=== PATIENT | male | born 1935 | race Caucasian/White ===

== ENCOUNTER → 2019-06-07 | Outpatient (CLI) | payer OTHER ==
--- NOTE | 2019-06-07 13:25 | US ---
EXAMINATION TYPE: US carotid duplex BILAT DATE OF EXAM: 06/07/2019 COMPARISON: NONE CLINICAL HISTORY: I65.23 Occlusion and stenosis of bilateral carotid. EXAM MEASUREMENTS: RIGHT: Peak Systolic Velocity (PSV) cm/sec ----- Right CCA: 65.1 ----- Right ICA: no flow ----- Right ECA: 110.8 ICA/CCA ratio: --- RIGHT: End Diastole cm/sec ----- Right CCA: 12.7 ----- Right ICA: no flow ----- Right ECA: 24.1 LEFT: Peak Systolic Velocity (PSV) cm/sec ----- Left CCA: 93.0 ----- Left ICA: 90.9 ----- Left ECA: 95.4 ICA/CCA ratio: 1.0 LEFT: End Diastole cm/sec ----- Left CCA: 27.0 ----- Left ICA: 35.9 ----- Left ECA: 15.4 VERTEBRALS (direction of flow): Right Vertebral: Antegrade Left Vertebral: Antegrade Rhythm: Normal Right ICA appears occluded with blunted waveform in bulb and no flow in ICA with color or pulsed wave doppler. Left side shows mild plaque with no increases in velocity seen. IMPRESSION: 1. Complete occlusion of the right internal carotid artery. 2. Mild grayscale plaquing of the left carotid arterial system without hemodynamically significant st enosis. Criteria for Assigning % of Stenosis / Diameter reduction (Estimation based on the indirect measurements of the internal carotid artery velocities (ICA PSV). 1. Normal (no stenosis)=ICA PSV < 125 cm/s: ratio < 2.0: ICA EDV<40 cm/s. 2. Less than 50% stenosis=ICA PSV < 125 cm/s: ratio < 2.0: ICA EDV<40 cm/s. 3. 50 to 69% stenosis=ICA PSV of 125 to 230 cm/s: ration 2.0 ? 4.0: ICA EDV 40-100 cm/s. 4. Greater than 70% stenosis to near occlusion= ICA PSV > 230 cm/s: ratio > 4.0: ICA EDV > 100 cm/s. 5. Near occlusion= ICA PSV velocities may be low or undetectable: variable ratio and ICA EDV. 6. Total occlusion=unable to detect flow.
== END | disposition home or self-care (01) ==
LOC: RADUSWWP 12:40
DX: I65.23 Occlusion and stenosis of bilateral carotid arteries (principal); Z88.8 Allergy status to other drugs, medicaments and biological substances
CPT/HCPCS: 93880

== ENCOUNTER → 2020-12-15 | Outpatient (CLI) | payer OTHER ==
--- NOTE | 2020-12-15 19:37 | CT ---
EXAMINATION TYPE: CT chest wo con DATE OF EXAM: 12/15/2020 COMPARISON: None HISTORY: Cough with phlegm CT DLP: 418.3 mGycm. Automated Exposure Control for Dose Reduction was Utilized. TECHNIQUE: CT scan of the thorax is performed without IV contrast. FINDINGS: LUNGS: There is extensive pleural-based thickening and calcification. Correlate for is best is relate d disease. No pleural effusion or pneumothorax. Interlobular septal thickening suggest chronic inters titial pulmonary fibrosis. Groundglass changes in the left upper lobe most likely the basis of atelec tasis correlate clinically to exclude a pneumonitis. MEDIASTINUM: Lack of IV contrast is noted to limit evaluation for mediastinal and especially hilar ad enopathy. There are no definitive greater than 1 cm hilar or mediastinal lymph nodes. Pericardial amelia cification noted. Coronary artery calcification seen. OTHER: There is vague increased attenuation involving the paraspinal region on the right which could represent developing mass or adenopathy. It is somewhat poorly defined of maximal width 1.6 cm. Simil ar finding is noted on the left to a lesser extent. Hypertrophic and degenerative changes of the spin e are noted. Chronic rib deformity seen. Left-sided renal lesions measure a maximal Hounsfield unit o f 12 suggestive of simple cyst. Right renal lesion measures approximately 4.6 Hounsfield units compat ible with simple cyst. Trace gynecomastia noted.. Metallic density noted within the left anterior sof t tissues of the chest. Correlate for foreign body. IMPRESSION: 1. Correlate for chronic interstitial lung disease and asbestos related disease. 2. There is vague increased attenuation in the paraspinal line greater on the right within the rail switch operator ior mediastinum. Suspicion for poorly defined adenopathy or mass. Recommend follow-up PET scan 3. Coronary artery calcification. 4. Renal simple cysts. 5. Groundglass changes left upper lobe. Atelectasis favored over pneumonitis.
== END | disposition home or self-care (01) ==
LOC: RADCTMAIN 13:33
PROVIDERS: ATTEND Physician Assistant
DX: J18.9 Pneumonia, unspecified organism (principal); J84.9 Interstitial pulmonary disease, unspecified; I25.10 Atherosclerotic heart disease of native coronary artery without angina pectoris
CPT/HCPCS: 71250

== ENCOUNTER → 2021-02-02 | Outpatient (CLI) | payer OTHER ==
--- NOTE | 2021-02-06 16:53 | PE ---
Nuclear medicine PET/CT HISTORY: Mediastinal mass, R 91.8, solitary pulmonary nodule initial Patient received 10.3 mCi F-18 FDG intravenously and delayed scanning was performed from the mid thig hs through the skull base. Correlation to chest CT 12/15/2020 Chest and neck: There is no cervical or supraclavicular adenopathy. No mediastinal, axillary, or litzy r adenopathy. Coronary artery calcifications are present. There are calcified pleural plaques present . The paraspinal soft tissue density with mixed fat attenuation is again noted, there is no associate d hypermetabolic uptake. There is no evident lung mass. Calcified lung nodules are present along the left heart border. There is no pleural or pericardial effusion. Coronary artery calcifications are pr esent. There are changes of gynecomastia. ABDOMEN: No suspicious uptake. No evident adrenal mass or liver mass. There is no ascites. Diverticul ar changes extensive in the sigmoid colon. No pelvic adenopathy or free fluid. Osseous structures show no suspicious uptake. Degenerative disc changes and facet arthropathy noted e specially in the lower lumbar spine. IMPRESSION: No suspicious uptake. Consider follow-up CT to assess for stability.
== END | disposition home or self-care (01) ==
LOC: RADPETMAIN 11:39
PROVIDERS: ATTEND Internal Medicine
DX: R91.8 Other nonspecific abnormal finding of lung field (principal); J92.9 Pleural plaque without asbestos
CPT/HCPCS: 78815; A9552

== ENCOUNTER 2021-12-07 11:37 | Observation (INO) | payer OTHER, MEDICARE, BC ==
[2021-12-07] MEDS ORDERED: ORPHENADRINE 30 MG/ML 2 ML VIAL IM STA (11:56)
--- NOTE | 2021-12-07 12:02 | ED ---
General Adult HPI - General Chief complaint: Extremity Problem,Nontraumatic Stated complaint: Leg Pain Time Seen by Provider: 12/07/21 11:48 Source: patient, EMS, RN notes reviewed, old records reviewed Mode of arrival: EMS Limitations: no limitations - History of Present Illness Initial comments: Patient states he has right hip and thigh pain for one week. He was seen at the [facility] and was told to have an ultrasound to rule out DVT. He did come to the emergency room and had an ultrasound on December 04 with no DVT noted. He continues to have right thigh pain that comes down across the top of his right thigh. He denies any injury. Patient states that last week he was walking while turkey hunting but did not walk far and did not have an injury. He states he has had back pain in the past but denies back pain, states pain starts in right hip. He denies any fevers, no nausea vomiting or diarrhea. One cigar a day smoker. Takes blood pressure and cholesterol meds, denies any other medical history. -: week(s) (1) Location: right, lower extremity (hip and thigh) Radiation: distal Severity scale (1-10): 8 Quality: sharp Associated Symptoms: denies other symptoms Treatments Prior to Arrival: NSAID, other (u/s) - Related Data Allergies Allergy/AdvReac Type Severity Reaction Status Date / Time No Known Allergies Allergy Verified 12/07/21 11:44 Review of Systems ROS Statement: Those systems with pertinent positive or pertinent negative responses have been documented in the HPI. ROS Other: All systems not noted in ROS Statement are negative. Past Medical History Past Medical History: Hyperlipidemia History of Any Multi-Drug Resistant Organisms: None Reported Past Surgical History: No Surgical Hx Reported Past Psychological History: No Psychological Hx Reported Smoking Status: Light tobacco smoker Past Alcohol Use History: Daily Past Drug Use History: None Reported General Exam Limitations: no limitations General appearance: alert, in no apparent distress Head exam: Present: atraumatic Neck exam: Present: normal inspection, full ROM. Absent: tenderness, meningismus Respiratory exam: Present: normal lung sounds bilaterally. Absent: respiratory distress, accessory muscle use Cardiovascular Exam: Present: regular rate GI/Abdominal exam: Present: soft. Absent: tenderness Extremities exam: Present: tenderness (Right hip pain), normal capillary refill. Absent: pedal edema, joint swelling, calf tenderness Right Hip exam: Present: tenderness, pelvic stability. Absent: swelling, laceration, ecchymosis, deformity, crepitus, dislocation, erythema, shortening Upper Leg exam: Present: tenderness (Anterior thigh along rectus femoris muscle). Absent: swelling, abrasion, ecchymosis, deformity, erythema Knee exam: Present: full knee extension. Absent: tenderness, swelling, ecchymosis, pain/laxity with valgus, pain/laxity with varus Lower Leg exam: Absent: tenderness, swelling Ankle exam: Absent: tenderness, swelling Foot/Toe exam: Absent: tenderness, swelling Neurovascular tendon exam: Present: no vascular compromise. Absent: abnormal cap refill, extremity cold to touch, foot drop Back exam: Present: full ROM. Absent: tenderness, CVA tenderness (R), CVA tenderness (L), muscle spasm, paraspinal tenderness, vertebral tenderness, rash noted Neurological exam: Present: alert, oriented X3 Psychiatric exam: Present: normal affect, normal mood Skin exam: Present: warm, dry, normal color. Absent: cyanosis, diaphoretic, petechiae, pallor Course Vital Signs 12/07/21 12/07/21 11:39 14:29 Temperature 97.8 F Pulse Rate 69 60 Respiratory 14 18 Rate Blood Pressure 174/83 145/80 O2 Sat by Pulse 96 95 Oximetry - Reevaluation(s) Reevaluation #1: 12/07/21 13:13 Patient states that he has no pain relief with the Norflex. Patient states now that the pain goes down to his ankle from his right hip but denies any low back pain. Time: 13:13 Reevaluation #2: 12/07/21 14:02 Patient was given Toradol and Dilaudid states 0 pain relief. Still unable to move leg without severe pain. Time: 14:02 Medical Decision Making - Medical Decision Making Patient presents with 1 week of right upper leg pain. States he is unable to ambulate due to pain. Came to the hospital via EMS. Patient states he lives alone and is unable to go home with the amount of pain he is in and unable to ambulate. Ultrasound was done 2 days ago and negative for DVT. Leg is pink warm and dry, there is no evidence of edema. I did perform an x-ray to rule out occult fracture, there is no evidence of fracture. Patient denies any pelvic pain, there is no pelvic instability. Patient was given multiple doses of pain medication with no relief. Case discussed with Dr. Hinds, He will be placed in observation for evaluation by Ortho. Disposition Clinical Impression: Intractable neuropathic pain of right lower extremity Disposition: ADMITTED IP TO THIS HOSP Referrals: [facility],Clinic [Primary Care Provider] - 1-2 days Decision Date: 12/07/21 Decision Time: 14:03
--- NOTE | 2021-12-07 12:59 | XR ---
EXAMINATION TYPE: XR Hip RT and AP Pelvis DATE OF EXAM: 12/07/2021 CLINICAL HISTORY: Pelvic and right hip pain. TECHNIQUE: A single AP view of the pelvis is obtained. Two views of the right hip are obtained. COMPARISON: None. FINDINGS: There is no acute fracture/dislocation evident in the pelvis. The hip and sacroiliac joints appear s ymmetric and unremarkable. The overlying soft tissue appears unremarkable.Two views of right hip guerrero w no acute fracture or dislocation. No focal lytic or sclerotic lesion seen in the proximal right fe mur. The overlying soft tissue is unremarkable. IMPRESSION: There is no acute fracture or dislocation in the pelvis or right hip.
[2021-12-07] MEDS ORDERED: KETOROLAC 15 MG/ML 1 ML VIAL IM STA (13:13)
[2021-12-07] MEDS ORDERED: HYDROmorphone 0.5 MG/0.5 ML SYRINGE IM STA (13:13)
[2021-12-07] MEDS ORDERED: HYDROmorphone 1 MG/ML 1 ML SYRINGE IM STA (14:11)
[2021-12-07] MEDS ORDERED: NALOXONE 0.4 MG/ML 1 ML VIAL IV PRN (14:17)
[2021-12-07] MEDS ORDERED: ACETAMINOPHEN TAB 325 MG TAB PO PRN (14:17)
[2021-12-07] MEDS ORDERED: IBUPROFEN 400 MG TAB PO PRN (14:17)
[2021-12-07] MEDS ORDERED: HYDROcodone/APAP 5-325MG 1 EACH TAB PO PRN (16:24)
[2021-12-07] MEDS ORDERED: traZODone HCL 50 MG TAB PO PRN (16:25)
[2021-12-07] MEDS ORDERED: CYCLOBENZAPRINE 5 MG TAB PO PRN (16:50)
--- NOTE | 2021-12-07 16:56 | P.HPIM ---
History of Present Illness H&P Date: 12/07/21 Chief Complaint: RLE pain Patient is an 86-year-old male with PMH of hypertension, dyslipidemia who presents the ED for right lower amber pain. Patient reports right hip pain that started 8 days ago. There is no precipitating event prior to his pain. Pain starts at the lateral hip, sharp and stabbing in nature radiating down the right lower extremity. Pain is 8 out of 10 in severity. Patient reports difficulty walking because of this pain. Pain is progressively been getting worse to the point he came to the ED today. He denies any headache, lower showing edema, nausea or vomiting, fever or chills, cough, chest pain, shortness of breath, palpitations, changes in urination or bowel habits. No changes in appetite or weight. Denies any dizziness. In the ED, vital signs are stable. No lab work was performed. X-ray of the hip was negative. Patient is admitted under observation status for intractable pain, unsafe discharge home, orthopedic consultation. Review of system was performed and is negative except for above. General: [non toxic], [no distress], [appears at stated age] Derm: [warm], [dry] Head: [atraumatic], [normocephalic], [symmetric] Eyes: [EOMI], [no lid lag], [anicteric sclera] Mouth: [no lip lesion], [mucus membranes moist] Cardiovascular: [S1S2 reg], [no murmur] Lungs: [CTA bilateral], [no rhonchi, no rales] , [no accessory muscle use] Abdominal: [soft], [ nontender to palpation], [no guarding], [no appreciable organomegaly] Ext: [no gross muscle atrophy], [no edema], [no contractures], [SLR positive right lower extremity, restricted ROM of the R hip due to pain] Neuro: [ CN II-XI grossly intact], [no focal neuro deficits] Psych: [Alert], [oriented], [appropriate affect] #Right hip pain #Hypertension #Dyslipidemia #Morbid obesity Patient presents with right hip pain and reduced mobility due to pain. Reports pain starting at the lateral hip and radiating down his right lower extremity. Pain appears neuropathic in nature. He'll be started on Tylenol, [place], ibuprofen or Dilaudid as needed for pain. Flexeril as needed for muscle spasm. He will be placed on fall precautions. PT and OT will be consulted to work with this patient. Orthopedic surgery has been consulted for further management of this patient. He'll be restarted on losartan. Vital signs of a moderate medication adjusted if necessary. Restart simvastatin for history dyslipidemia. Patient will benefit from a structured weight loss program. DVT prophylaxis: [SCD] Discussed with: [Patient] Anticipated discharge: [1-2 days] Anticipated discharge place: [Home] A total of [45] minutes was spent on the care of this complex patient more than 50% of the time was spent in counseling and care coordination. Patient names his daughter decision maker if he can make decisions for himself. Patient would like to be full code. Past Medical History Past Medical History: Hyperlipidemia History of Any Multi-Drug Resistant Organisms: None Reported Past Surgical History: No Surgical Hx Reported Past Psychological History: No Psychological Hx Reported Smoking Status: Light tobacco smoker Past Alcohol Use History: Daily Past Drug Use History: None Reported Medications and Allergies Home Medications Medication Instructions Recorded Confirmed Type Aspirin EC [Ecotrin Low Dose] 81 mg PO DAILY 12/07/21 12/07/21 History Losartan [Cozaar] 12.5 mg PO DAILY 12/07/21 12/07/21 History Melatonin 5 - 10 mg PO HS PRN 12/07/21 12/07/21 History Multivitamins, Thera [Multivitamin 1 tab PO DAILY 12/07/21 12/07/21 History (formulary)] Simvastatin 40 mg PO DAILY 12/07/21 12/07/21 History traZODone HCL [Desyrel] 25 mg PO HS PRN 12/07/21 12/07/21 History Allergies Allergy/AdvReac Type Severity Reaction Status Date / Time No Known Allergies Allergy Verified 12/07/21 14:40 Physical Exam Vitals: Vital Signs Temp Pulse Resp BP Pulse Ox 12/07/21 14:29 60 18 145/80 95 12/07/21 11:39 97.8 F 69 14 174/83 96 Intake and Output 12/07/21 12/07/21 12/07/21 06:59 14:59 22:59 Other: Weight 86.183 kg
[2021-12-07] MEDS: HYDROmorphone 1 MG/ML 1 ML SYRINGE IVP PRN ×2 (19:54→23:06)
[2021-12-08] MEDS: HYDROmorphone 1 MG/ML 1 ML SYRINGE IVP PRN ×3 (02:00→15:12)
--- NOTE | 2021-12-08 08:52 | P.DS ---
Providers Date of admission: 12/07/21 14:21 Expected date of discharge: 12/08/21 Attending physician: Demar Nicole MD Consults: 12/07/21 14:18 Consult Physician Routine Consulting Provider: Maximo Negrete Consult Reason/Comments: Intractable right leg pain Do you want consulting provider notified?: Yes Primary care physician: [facility] Course: Patient is an 86-year-old male with PMH of hypertension, dyslipidemia who presents the ED for right lower amber pain. Patient reports right hip pain that started 8 days ago. There is no precipitating event prior to his pain. Pain starts at the lateral hip, sharp and stabbing in nature radiating down the right lower extremity. Pain is 8 out of 10 in severity. Patient reports difficulty walking because of this pain. Pain is progressively been getting worse to the point he came to the ED today. He denies any headache, lower showing edema, nausea or vomiting, fever or chills, cough, chest pain, shortness of breath, palpitations, changes in urination or bowel habits. No changes in appetite or weight. Denies any dizziness. In the ED, vital signs are stable. No lab work was performed. X-ray of the hip was negative. Patient is admitted under observation status for intractable pain, unsafe discharge home, orthopedic consultation. His pain was controlled with [place], and Dilaudid as needed. Flexeril was added for muscle spasms. PT and OT was consulted to work with this patient. Orthopedic surgery was consulted and was pending at the time of this note. Patient was seen and examined on 12/08/2021. He reported considerable improvement in his right lower extremity pain. He was comfortable with being discharged home on oral pain medication to follow-up with orthopedic surgery within 1 week in the outpatient setting. Patient was advised follow-up with his PCP within 1-2 days of discharge. He was sent home with a 3 day prescription for Percocet and Flexeril as needed. This complex discharge took about 45 minutes to complete. General: [non toxic], [no distress], [appears at stated age] Derm: [warm], [dry] Head: [atraumatic], [normocephalic], [symmetric] Eyes: [EOMI], [no lid lag], [anicteric sclera] Mouth: [no lip lesion], [mucus membranes moist] Cardiovascular: [S1S2 reg], [no murmur] Lungs: [CTA bilateral], [no rhonchi, no rales] , [no accessory muscle use] Ext: [no gross muscle atrophy], [no edema], [no contractures], [SLR positive right lower extremity, restricted ROM of the R hip due to pain] Neuro: [no focal neuro deficits] Psych: [Alert], [oriented], [appropriate affect] Discharge Diagnosis: #Right hip pain #Hypertension #Dyslipidemia #Morbid obesity Pertinent Studies: Hip/Pelvis XRay Patient Condition at Discharge: Stable Plan - Discharge Summary Discharge Rx Participant: No New Discharge Prescriptions: New oxyCODONE HCL/ACETAMINOPHEN [Percocet 7.5-325 mg] 1 tab PO Q6HR PRN 3 Days #12 tab PRN Reason: Severe Pain Cyclobenzaprine [Flexeril] 5 mg PO TID PRN #30 tab PRN Reason: Muscle Spasm Continue Multivitamins, Thera [Multivitamin (formulary)] 1 tab PO DAILY traZODone HCL [Desyrel] 25 mg PO HS PRN PRN Reason: Insomnia Melatonin 5 - 10 mg PO HS PRN PRN Reason: Insomnia Simvastatin 40 mg PO DAILY Aspirin EC [Ecotrin Low Dose] 81 mg PO DAILY Losartan [Cozaar] 12.5 mg PO DAILY Discharge Medication List Aspirin EC [Ecotrin Low Dose] 81 mg PO DAILY 12/07/21 [History] Losartan [Cozaar] 12.5 mg PO DAILY 12/07/21 [History] Melatonin 5 - 10 mg PO HS PRN 12/07/21 [History] Multivitamins, Thera [Multivitamin (formulary)] 1 tab PO DAILY 12/07/21 [History] Simvastatin 40 mg PO DAILY 12/07/21 [History] traZODone HCL [Desyrel] 25 mg PO HS PRN 12/07/21 [History] Cyclobenzaprine [Flexeril] 5 mg PO TID PRN #30 tab 12/08/21 [Rx] oxyCODONE HCL/ACETAMINOPHEN [Percocet 7.5-325 mg] 1 tab PO Q6HR PRN 3 Days #12 tab 12/08/21 [Rx] Follow up Appointment(s)/Referral(s): Kirk Dove DO [Doctor of Osteopathic Medicine] - 1 Week [facility],Clinic [Primary Care Provider] - 1-2 days Activity/Diet/Wound Care/Special Instructions: Diet: Cardiac FU with PCP within 1-2 days of discharge. FU with Orthopedic surgery Dr. Dove within 1 week of discharge. Take all medications as advised. Come back to the ED or call 911 for worsening hip pain, chest pain, shortness of breath, palpitations, dizziness/lightheadedness. Discharge Disposition: HOME SELF-CARE
[2021-12-08] MEDS ORDERED: LOSARTAN 25 MG TAB PO SCH (09:00)
[2021-12-08] MEDS ORDERED: ATORVASTATIN 20 MG TAB PO SCH (09:00)
[2021-12-08] MEDS ORDERED: ASPIRIN 81 MG PO SCH (09:00)
--- NOTE | 2021-12-08 09:36 | P.CNOR ---
History of Present Illness - HPI Consult date: 12/08/21 History of present illness: This is an 86-year-old male who is admitted for evaluation of right thigh pain. Patient's past medical history is significant for hyperlipidemia and hypertension. Patient is seen and evaluated at bedside today. Patient states that about 8 or 9 days ago he developed a significant pain in the side and back of the right hip that radiates to the front of the thigh. Patient denies any injury, history of back problems or any past spine surgery. Patient states that when the pain was at its worst he was unable to bear weight on the right lower extremity. Patient states that he does live alone and has been using a cane because of the pain. Patient states that he has noticed improvement in his pain since being admitted to the hospital and has been able to bear weight on the right lower extremity using a walker. Patient denies any fever/chills, numbness or tingling. Review of Systems See HPI. Past Medical History Past Medical History: Hyperlipidemia, Hypertension History of Any Multi-Drug Resistant Organisms: None Reported Past Surgical History: No Surgical Hx Reported Past Anesthesia/Blood Transfusion Reactions: No Reported Reaction Past Psychological History: No Psychological Hx Reported Smoking Status: Light tobacco smoker Past Alcohol Use History: Daily Additional Past Alcohol Use History / Comment(s): 1 cigar Past Drug Use History: None Reported - Past Family History Mother Family Medical History: No Reported History Medications and Allergies Home Medications Medication Instructions Recorded Confirmed Type Aspirin EC [Ecotrin Low Dose] 81 mg PO DAILY 12/07/21 12/07/21 History Losartan [Cozaar] 12.5 mg PO DAILY 12/07/21 12/07/21 History Melatonin 5 - 10 mg PO HS PRN 12/07/21 12/07/21 History Multivitamins, Thera [Multivitamin 1 tab PO DAILY 12/07/21 12/07/21 History (formulary)] Simvastatin 40 mg PO DAILY 12/07/21 12/07/21 History traZODone HCL [Desyrel] 25 mg PO HS PRN 12/07/21 12/07/21 History Cyclobenzaprine [Flexeril] 5 mg PO TID PRN #30 tab 12/08/21 Rx oxyCODONE HCL/ACETAMINOPHEN 1 tab PO Q6HR PRN 3 Days #12 tab 12/08/21 Rx [Percocet 7.5-325 mg] Allergies Allergy/AdvReac Type Severity Reaction Status Date / Time No Known Allergies Allergy Verified 12/07/21 14:40 Physical Examination On exam patient is resting comfortably in bed in no acute distress. Patient has full active range of motion of bilateral lower extremities without pain or difficulty. Patient has full passive range of motion of the right hip without any pain or difficulty. Negative straight leg raise bilaterally. There is no tenderness to palpation, swelling, erythema, step-off or deformities noted over the spine. There is no tenderness to palpation over the right hip. Sensation intact bilaterally. Neurovascular status and circulatory status are intact. Results X-rays of the right hip and pelvis are negative. X-rays of the lumbar spine are pending. Assessment and Plan (1) Radicular pain of right lower extremity Current Visit: Yes Status: Acute Code(s): M54.10 - RADICULOPATHY, SITE UNSPECIFIED SNOMED Code(s): 79411583 Plan: 1. X-rays of the right hip and pelvis are reviewed and are negative. X-rays of the lumbar spine are pending. 2. It is discussed with the patient that his pain is likely coming from his back. Patient's pain has improved since being admitted and he has been independently mobile in his room. If x-rays of the lumbar spine are negative patient may be discharged home with outpatient follow-up for further evaluation of the spine.
--- NOTE | 2021-12-08 14:01 | XR ---
Lumbar spine. HISTORY: Back pain and radiculopathy. COMPARISON: None. TECHNIQUE: 3 views lumbar spine were obtained. FINDINGS: The lumbar vertebral segments are normal in height and alignment and there is no fracture or subluxat ion. The disc spaces are well-maintained but there is marked spondylosis indicating mild degenerative disc disease. There is moderate to marked facet arthropathy at the L4-5 and L5-S1 levels. The sacrum and SI joints appear normal. IMPRESSION: 1. No lumbar spine fracture or malalignment. 2. Mild degenerative disc disease throughout the lumbar region. 3. Advanced facet arthropathy at the L4-5 and L5-S1 level.
[2021-12-08 14:57] VITALS: BP 152/71; PULSE 80; RESP 18; TEMP 97.8
== END 2021-12-08 16:21 | disposition home or self-care (01) ==
LOC: EC 11:37 → 6NMEDSUR 14:21
PROVIDERS: ADMIT Family Medicine; ATTEND Family Medicine
DX: M25.551 Pain in right hip (principal); I10 Essential (primary) hypertension; E78.5 Hyperlipidemia, unspecified; E66.01 Morbid (severe) obesity due to excess calories; Z68.30 Body mass index [BMI] 30.0-30.9, adult; M62.838 Other muscle spasm; F17.290 Nicotine dependence, other tobacco product, uncomplicated; M51.36 Other intervertebral disc degeneration, lumbar region; Z71.9 Counseling, unspecified; Z79.82 Long term (current) use of aspirin; Z79.899 Other long term (current) drug therapy
CPT/HCPCS: 96376; 96374; 96372; 99285; 72100; 73502; G0378 ×2; J2360; J1170 ×3; J1885

== ENCOUNTER 2024-08-26 05:16 | Inpatient (IN) | payer OTHER, MEDICARE ==
[2024-08-26 05:28] LABS: Glucose,Whole Blood 131 mg/dL (70-110)
[2024-08-26] MEDS: SODIUM CHLORIDE 0.9% 1,000 ML IV ONE (05:32)
[2024-08-26] MEDS: ONDANSETRON 4 MG/2 ML VIAL IVP STA (05:33)
[2024-08-26] MEDS: MORPHINE SULFATE 4 MG/ML SYRINGE IV STA (05:35)
[2024-08-26] MEDS: ACETAMINOPHEN IV (For NPO) 1,000 MG/100 ML VIAL IV ONE (05:37)
--- NOTE | 2024-08-26 05:39 | ED ---
General Adult HPI - General Chief complaint: Fall Stated complaint: Fall Time Seen by Provider: 08/26/24 05:19 Source: patient Mode of arrival: EMS - History of Present Illness Initial comments: Patient is a pleasant 89-year-old gentleman presenting today for mechanical trip and fall. Patient states that 8 PM last night he slipped getting out of the car and fell onto his left hip. He was unable to get up afterwards so his son carried into the house onto the couch. Patient attempted to get up off the couch early this morning for a glass of water and was unable to get up secondary to pain. Patient denies hitting his head, loss of consciousness or additional injuries. Takes baby aspirin but no other blood thinners. Has never had surgery in the past. Last meal was at 10 PM last night. Currently rates pain in his left hip as 4-5 out of 10. No pain medications prior to arrival. Patient denies numbess. Denies allergies. - Related Data Home Medications Medication Instructions Recorded Confirmed Aspirin EC [Ecotrin Low Dose] 81 mg PO DAILY 12/07/21 08/26/24 Losartan [Cozaar] 25 mg PO DAILY 12/07/21 08/26/24 Multivitamins, Thera [Multivitamin 1 tab PO DAILY 12/07/21 08/26/24 (formulary)] Cholecalciferol [Vitamin D3 (10 10 mcg PO DAILY 08/26/24 08/26/24 Mcg = 400 Iu)] Naproxen 500 mg PO BID PRN 08/26/24 08/26/24 Allergies Allergy/AdvReac Type Severity Reaction Status Date / Time No Known Allergies Allergy Verified 08/26/24 07:01 Review of Systems ROS Statement: Those systems with pertinent positive or pertinent negative responses have been documented in the HPI. ROS Other: All systems not noted in ROS Statement are negative. Past Medical History Past Medical History: Hyperlipidemia, Hypertension History of Any Multi-Drug Resistant Organisms: None Reported Past Surgical History: No Surgical Hx Reported Past Anesthesia/Blood Transfusion Reactions: No Reported Reaction Past Psychological History: No Psychological Hx Reported Smoking Status: Light tobacco smoker Past Alcohol Use History: Daily Past Drug Use History: None Reported - Past Family History Mother Family Medical History: No Reported History General Exam - General Exam Comments Initial Comments: PE: CONSTITUTIONAL: No apparent distress, well appearing SKIN: Warm, dry, no jaundice, hives or petechiae, small amount of bruising to medial left thigh EYES: Pupils are equally round, extraocular movements intact without nystagmus, clear conjunctiva, non-icteric sclera HENT: Normocephalic, atraumatic, moist mucus membranes, oropharynx clear without exudates NECK: , Full range of motion, normal appearance PULMONARY: Clear to auscultation without wheezes, rhonchi, or rales, normal excursion, no accessory muscle use and no stridor CARDIOVASCULAR: Regular rate, rhythm, normal S1 and S2. No appreciated murmurs, rubs or gallops. Strong radial and dorsalis pedis pulses bilaterally with intact distal perfusion. No lower extremity edema GASTROINTESTINAL: Soft, active bowel sounds throughout, non-tender, non- distended, no palpable masses, no rebound or guarding. No hepatosplenomegaly GENITOURINARY: MUSCULOSKELETAL: LLE is shortened and externall rotated, TTP left hip, unable to flex or extend left knee 2/2 pain in hip, able to dorsiand plantar flex at left ankle without difficulty, sensation intact throughout affected extremity, LLE is neurovascularly intact, other extremities have no gross deformity, no edema, redness, or swelling. NEUROLOGIC:_a/o x 3, GCS 15, normal mentation and speech. Moves all extremities x 4 without motor or sensory deficit PSYCHIATRIC:_normal mood and affect, thought process is clear and linear Course Vital Signs 08/26/24 08/26/24 05:17 06:27 Temperature 97.7 F Pulse Rate 75 74 Respiratory 24 20 Rate Blood Pressure 137/84 127/71 O2 Sat by Pulse 95 Oximetry EKG Findings - EKG Comments: EKG Findings:: Sinus rhythm with first-degree AV block, rate 77 bpm TN interval 237 ms QRS duration 134 ms QT/QTc 434/466 ms left axis deviation, left bundle branch block, no ST elevations or depressions, no STEMI, no prior for comparison Medical Decision Making - Medical Decision Making Was pt. sent in by a medical professional or institution (, PA, BUILD AND RELEASE MANAGER, urgent care, hospital, or retirement...) When possible be specific @ -No Did you speak to anyone other than the patient for history (EMS, parent, family, police, friend...)? What history was obtained from this source @ -No Did you review nursing and triage notes (agree or disagree)? Why? @ -I reviewed nursing and triage notes Were old charts reviewed (outside hosp., previous admission, EMS record, old EKG, old radiological studies, urgent care reports/EKG's, retirement records)? Report findings @ -Medical records reviewed patient was here for hip pain and December 2021, x-ray lumbar spine was done at that time without any fracture or malalignment with mild degenerative disc disease and advanced facet arthropathy at L4-L5 L5-S1 Differential Diagnosis (chest pain, altered mental status, abdominal pain women, abdominal pain men, vaginal bleeding, weakness, fever, dyspnea, syncope, headache, dizziness, GI bleed, back pain, seizure, CVA, palpatations, mental health, musculoskeletal)? Differential Musculoskeletal Muscular strain, contusion, ligament sprain, fracture, arthritis, septic arthritis, bursitis, cellulitis, muscle spasm, nerve compression, DVT, arterial occlusion, herpes zoster, electrolyte abnormality, tumor.... This is not meant to be in all inclusive list EKG interpreted by me (3pts min.). @ -As above X-rays interpreted by me (1pt min.). Left impacted femoral neck fracture CT interpreted by me (1pt min.). @ -None done U/S interpreted by me (1pt. min.). @ -None done What testing was considered but not performed or refused? (CT, X-rays, U/S, labs)? Why? @ -None What meds were considered but not given or refused? Why? @ -None Did you discuss the management of the patient with other professionals (professionals i.e. , PA, BUILD AND RELEASE MANAGER, lab, RT, psych nurse, social media content manager, calender inspector, te acher, chief diversity officer, sample case porter)? Give summary @Case discussed with Dr. Glover, orthopedics, will see patient and likely OR this afternoon Was smoking cessation discussed for >3mins.? @ -No Was critical care preformed (if so, how long)? @ -No Were there social determinants of health that impacted care today? How? (Homelessness, low income, unemployed, alcoholism, drug addiction, transportat ion, low edu. Level, literacy, decrease access to med. care, residential, rehab)? @ -No Was there de-escalation of care discussed even if they declined (Discuss DNR or withdrawal of care, Hospice)? @ -No What co-morbidities impacted this encounter? (DM, HTN, Smoking, COPD, CAD, Cancer, CVA, ARF, Chemo, Hep., AIDS, mental health diagnosis, sleep apnea, morbid obesity)? @ -None Was patient admitted / discharged? Hospital course, mention meds given and route, prescriptions, significant lab abnormalities, going to OR and other pertinent info. @ -Admission- Patient is a pleasant 89-year-old gentleman without significant medical history presenting today for a mechanical trip and fall with resultant left hip injury. Patient seen and assessed on arrival, he is in no acute distress, resting comfortably. Left lower extremity shortened and externally rotated neurovascularly intact, tender to palpation at the left hip. No wounds noted. Plan for morphine, Ofirmev, IV fluids, basic pre op labs should pt have a hip fracture. EKG was obtained prior to my assessment. Reviewed XR's, patient appears to have a left impacted femoral neck fracture, pending radiologist read. Discussed case w/ Dr. Negrete, orthopedics, kindly agrees to admit to his service, plans to take patient to OR around 4:30 this afternoon, keep patient NPO, consult medicine for medical clearance. Update patient and family to f leena and plan. Pt's pain now 2/10, he politely declines further pain control. Patient admitted in stable condition. Undiagnosed new problem with uncertain prognosis? @ -No Drug Therapy requiring intensive monitoring for toxicity (Heparin, Nitro, Insulin, Cardizem)? @ -No Were any procedures done? @ -No Diagnosis/symptom? @left femoral neck fracture Acute, or Chronic, or Acute on Chronic? acute Uncomplicated (without systemic symptoms) or Complicated (systemic symptoms)? uncomplicated Side effects of treatment? @ -No Exacerbation, Progression, or Severe Exacerbation? @ -No Poses a threat to life or bodily function? How? (Chest pain, USA, HI, pneumonia, PE, COPD, DKA, ARF, appy, cholecystitis, CVA, Diverticulitis, Homicidal, Suicidal, threat to staff... and all critical care pts) Yes, if left untreated would lead to permanent disability. - Lab Data Result diagrams: 08/26/24 05:31 08/26/24 05:31 Lab Results 08/26/24 08/26/24 08/26/24 Range/Units 05:26 05:31 05:31 WBC 13.9 H (3.8-10.6) k/uL RBC 4.27 L (4.30-5.90) m/uL Hgb 13.9 (13.0-17.5) gm/dL Hct 41.5 (39.0-53.0) % MCV 97.2 (80.0-100.0) fL MCH 32.5 (25.0-35.0) pg MCHC 33.4 (31.0-37.0) g/dL RDW 13.1 (11.5-15.5) % Plt Count 167 (150-450) k/uL MPV 7.0 Neutrophils % 91 % Lymphocytes % 4 % Monocytes % 4 % Eosinophils % 0 % Basophils % 0 % Neutrophils # 12.7 H (1.3-7.7) k/uL Lymphocytes # 0.6 L (1.0-4.8) k/uL Monocytes # 0.5 (0-1.0) k/uL Eosinophils # 0.0 (0-0.7) k/uL Basophils # 0.0 (0-0.2) k/uL PT 10.8 (10.0-12.5) sec INR 1.0 (<1.2) APTT 23.7 (22.0-30.0) sec Sodium (137-145) mmol/L Potassium (3.5-5.1) mmol/L Chloride (98-107) mmol/L Carbon Dioxide (22-30) mmol/L Anion Gap mmol/L BUN (9-20) mg/dL Creatinine (0.66-1.25) mg/dL Est GFR (CKD-EPI)AfAm (>60 ml/min/1.73 sqM) Est GFR (CKD-EPI)NonAf (>60 ml/min/1.73 sqM) Glucose (74-99) mg/dL POC Glucose (mg/dL) 131 H (70-110) mg/dL POC Glu Occup Ther ID Caya Shira Calcium (8.4-10.2) mg/dL Total Bilirubin (0.2-1.3) mg/dL AST (17-59) U/L ALT (4-49) U/L Alkaline Phosphatase (38-126) U/L Total Protein (6.3-8.2) g/dL Albumin (3.5-5.0) g/dL 08/26/24 Range/Units 05:31 WBC (3.8-10.6) k/uL RBC (4.30-5.90) m/uL Hgb (13.0-17.5) gm/dL Hct (39.0-53.0) % MCV (80.0-100.0) fL MCH (25.0-35.0) pg MCHC (31.0-37.0) g/dL RDW (11.5-15.5) % Plt Count (150-450) k/uL MPV Neutrophils % % Lymphocytes % % Monocytes % % Eosinophils % % Basophils % % Neutrophils # (1.3-7.7) k/uL Lymphocytes # (1.0-4.8) k/uL Monocytes # (0-1.0) k/uL Eosinophils # (0-0.7) k/uL Basophils # (0-0.2) k/uL PT (10.0-12.5) sec INR (<1.2) APTT (22.0-30.0) sec Sodium 132 L (137-145) mmol/L Potassium 3.9 (3.5-5.1) mmol/L Chloride 98 (98-107) mmol/L Carbon Dioxide 24 (22-30) mmol/L Anion Gap 10 mmol/L BUN 9 (9-20) mg/dL Creatinine 0.78 (0.66-1.25) mg/dL Est GFR (CKD-EPI)AfAm >90 (>60 ml/min/1.73 sqM) Est GFR (CKD-EPI)NonAf 81 (>60 ml/min/1.73 sqM) Glucose 141 H (74-99) mg/dL POC Glucose (mg/dL) (70-110) mg/dL POC Glu Occup Ther ID Calcium 8.7 (8.4-10.2) mg/dL Total Bilirubin 0.8 (0.2-1.3) mg/dL AST 22 (17-59) U/L ALT 13 (4-49) U/L Alkaline Phosphatase 66 (38-126) U/L Total Protein 6.5 (6.3-8.2) g/dL Albumin 3.8 (3.5-5.0) g/dL Disposition Clinical Impression: Fracture of femoral neck, left Disposition: ADMITTED IP TO THIS HOSP Condition: Stable
[2024-08-26 05:49] LABS: Basophils % (A) 0 %; Eosinophils % (A) 0 %; HCT 41.5 % (39.0-53.0); HGB 13.9 gm/dL (13.0-17.5); Lymphocytes # (A) 0.6 k/uL (1.0-4.8); Lymphocytes % (A) 4 %; MCH 32.5 pg (25.0-35.0); MCHC 33.4 g/dL (31.0-37.0); MCV 97.2 fL (80.0-100.0); Monocytes # (A) 0.5 k/uL (0-1.0); Monocytes % (A) 4 %; Neutrophils # (A) 12.7 k/uL (1.3-7.7); Neutrophils % (A) 91 %; Platelet Count 167 k/uL (150-450); RBC 4.27 m/uL (4.30-5.90); RDW 13.1 % (11.5-15.5); WBC 13.9 k/uL (3.8-10.6)
[2024-08-26 05:58] LABS: Partial Thromboplastin Time 23.7 sec (22.0-30.0); Prothrombin Time 10.8 sec (10.0-12.5)
[2024-08-26] MEDS: ACETAMINOPHEN IV (For NPO) 1,000 MG in EMPTY BAG 1 BAG IVPB STA (06:02)
[2024-08-26 06:08] LABS: ALT 13 U/L (4-49); AST 22 U/L (17-59); African American GFR (CKD) >90 (>60 ml/min/1.73 sqM); Albumin 3.8 g/dL (3.5-5.0); Alkaline Phosphatase 66 U/L (38-126); Anion Gap 10 mmol/L; Blood Urea Nitrogen 9 mg/dL (9-20); Calcium 8.7 mg/dL (8.4-10.2); Carbon Dioxide 24 mmol/L (22-30); Chloride 98 mmol/L (98-107); Glucose 141 mg/dL (74-99); Non-African American GFR(CKD) 81 (>60 ml/min/1.73 sqM); Potassium 3.9 mmol/L (3.5-5.1); Sodium 132 mmol/L (137-145); Total Bilirubin 0.8 mg/dL (0.2-1.3); Total Protein 6.5 g/dL (6.3-8.2)
[2024-08-26] MEDS ORDERED: bisacodyL 5 MG TABLET.DR PO PRN (06:13)
[2024-08-26] MEDS ORDERED: MAG HYDROX/AL HYDROX/SIMETH 30 ML CUP PO PRN (06:13)
[2024-08-26] MEDS ORDERED: NALOXONE 0.4 MG/ML 1 ML VIAL IV PRN ×2 (06:13→19:15)
[2024-08-26] MEDS ORDERED: MORPHINE SULFATE 4 MG/ML SYRINGE IV PRN (06:13)
[2024-08-26] MEDS ORDERED: DOCUSATE 100 MG CAP PO PRN (06:13)
[2024-08-26] MEDS ORDERED: CALCIUM CARBONATE 500 MG CHEWABLE PO PRN (06:13)
--- NOTE | 2024-08-26 06:29 | XR ---
EXAM: XR Chest, 1 View CLINICAL HISTORY: Pt presents to the ED with complaints of pain in his left hip 05/13, after a fall on ice at 1999 yesterday. Pt reports no LOC, no head trauma. Pt takes baby aspirin at home. TECHNIQUE: Frontal view of the chest. COMPARISON: CT chest from 12/15/20 FINDINGS: Lungs: Mild diffuse airspace opacities throughout both lungs. Pleural space: Unremarkable. Heart: Cardiomegaly. Bones/joints: No acute findings. IMPRESSION: Mild CHF
--- NOTE | 2024-08-26 06:30 | XR ---
EXAM: XR Left Femur, 2 Views CLINICAL HISTORY: ITS.REASON XR Reason: fall LL short. Externally rotated TECHNIQUE: Frontal and lateral views of the left femur. COMPARISON: No relevant prior studies available. FINDINGS: Bones/joints: Osteopenia. Suspect left femoral neck fracture with impaction. Osteopenia. Soft tissues: Unremarkable. IMPRESSION: Suspect left femoral neck fracture with impaction.
--- NOTE | 2024-08-26 06:31 | XR ---
EXAM: XR Pelvis, 1 View CLINICAL HISTORY: ITS.REASON XR Reason: fall LL short. Externally rotated TECHNIQUE: Frontal view of the pelvis. COMPARISON: No relevant prior studies available. FINDINGS: Bones/joints: Osteopenia. Suspect left femoral neck fracture with impaction. Osteopenia. Soft tissues: Unremarkable. IMPRESSION: Suspect left femoral neck fracture with impaction.
--- NOTE | 2024-08-26 07:18 | CT ---
EXAMINATION TYPE: CT hip LT wo con DATE OF EXAM: 08/26/2024 7:06 AM COMPARISON: . Extremity radiograph same day. CLINICAL INDICATION: Male, 89 years old with history of surgical planning; PHH, fx left hip TECHNIQUE: Axial images were obtained of the CT hip LT wo con, Additional coronal and sagittal reform atted images and soft tissue and bone window were obtained for review. 3-D reconstruction was created on a separate workstation. Contrast used: mL of , (None if empty) Oral contrast used: (None if empty) CT DLP: 571 mGycm, Automated exposure control for dose reduction was used. FINDINGS: Subcutaneous left femoral neck fracture with shortening and displacement. No additional fra ctures identified. There is associated soft tissue swelling. Atherosclerosis of the arterial vasculat ure. Scattered pelvic fluid was present. Biliary changes. The prostate is enlarged measuring up to 5. 0 cm. IMPRESSION: Left proximal femoral neck fracture with complete displacement. [facility], , 08/26/2024 7:16 AM
[2024-08-26] MEDS: DEXTROSE 5%-0.45% NACL 1,000 ML IV SCH (07:19)
[2024-08-26] MEDS: HYDROmorphone 0.5 MG/0.5 ML SYRINGE IVP PRN (07:50)
[2024-08-26] MEDS: PANTOPRAZOLE 40 MG/10 ML VIAL IV SCH (08:33)
--- NOTE | 2024-08-26 09:21 | P.HPOR ---
History of Present Illness H&P Date: 08/26/24 Chief Complaint: Left hip fracture The patient is a pleasant 89-year-old male with past medical history of hypertension, hyperlipidemia, who presented to the emergency department on 08/26/2024 for a mechanical trip and fall. Per chart review, the patient stated that 8 PM on 08/25/2024 he slipped getting out of a car and fell onto the ground and landed on his left hip. He was unable to get up afterwards so his son carried him into the house onto the couch. Patient attempted to get up off the couch early that morning for a glass of water and was unable to get up secondary to pain and was brought to the emergency department for evaluation. X-ray images of the pelvis and femur demonstrated a left transcervical femoral neck fracture. Orthopedics was consulted and Dr. Negrete ordered a hip CT scan. Hip CT obtained on 08/26/2024 demonstrated left proximal femoral neck fracture with complete displacement. Patient was examined and ER room #[address] Maximo Negrete. Patient denied hitting his head, loss of consciousness or any additional injuries. He stated he takes baby aspirin but no other blood thinners. He stated he has never had surgery in the past. He stated last meal was at 10 PM on 08/25/2024. He denies any other pain besides left hip pain. He states he lives alone in a home. He states he did not previously use a walker or cane. His daughters were at bedside at time of exam. Past Medical History Past Medical History: Hyperlipidemia, Hypertension History of Any Multi-Drug Resistant Organisms: None Reported Past Surgical History: No Surgical Hx Reported Past Anesthesia/Blood Transfusion Reactions: No Reported Reaction Past Psychological History: No Psychological Hx Reported Smoking Status: Light tobacco smoker Past Alcohol Use History: Daily Past Drug Use History: None Reported - Past Family History Mother Family Medical History: No Reported History Medications and Allergies Home Medications Medication Instructions Recorded Confirmed Type Aspirin EC [Ecotrin Low Dose] 81 mg PO DAILY 12/07/21 08/26/24 History Losartan [Cozaar] 25 mg PO DAILY 12/07/21 08/26/24 History Multivitamins, Thera [Multivitamin 1 tab PO DAILY 12/07/21 08/26/24 History (formulary)] Cholecalciferol [Vitamin D3 (10 10 mcg PO DAILY 08/26/24 08/26/24 History Mcg = 400 Iu)] Naproxen 500 mg PO BID PRN 08/26/24 08/26/24 History Allergies Allergy/AdvReac Type Severity Reaction Status Date / Time No Known Allergies Allergy Verified 08/26/24 07:01 Physical Examination Patient was examined at bedside in ER room #28 this morning. Patient head appears normocephalic and atraumatic. Patient has nonlabored breathing with equal chest expansion. Left lower extremity appears shortened and externally rotated. Patient denies pain to palpation to the cervical spine, clavicles, shoulders, humerus, elbows, forearms, wrist, or hand. Patient denies palpation to the right hip, femur, knee, ankle, or foot. No scars or active lesions over the anterior aspect of the left hip. The left thigh has generalized swelling. Patient reports tenderness to palpation over the left hip diffusely. Patient denies pain with palpation of the distal left femur, knee, ankle, foot. Patient's left dorsalis pedis and posterior tibialis pulses are intact and foot appears pink and well-perfused with capillary refill under 2 seconds. Results - Labs Labs: Abnormal Lab Results - Last 24 Hours (Table) 08/26/24 08/26/24 08/26/24 Range/Units 05:26 05:31 05:31 WBC 13.9 H (3.8-10.6) k/uL RBC 4.27 L (4.30-5.90) m/uL Neutrophils # 12.7 H (1.3-7.7) k/uL Lymphocytes # 0.6 L (1.0-4.8) k/uL Sodium 132 L (137-145) mmol/L Glucose 141 H (74-99) mg/dL POC Glucose (mg/dL) 131 H (70-110) mg/dL H & H 08/26/24 Range/Units 05:31 Hgb 13.9 (13.0-17.5) gm/dL Hct 41.5 (39.0-53.0) % Coagulation 08/26/24 Range/Units 05:31 INR 1.0 (<1.2) Result Diagrams: 08/26/24 05:31 08/26/24 05:31 Assessment and Plan Assessment: Left transcervical femoral neck fracture status post ground-level fall Left hip pain Plan: Remain NPO. Remain nonweightbearing. Dr. Maximo Negrete discussed with the patient and daughters at bedside this morning the operative treatment options and risks for a left transcervical femoral neck fracture of a left hip hemiarthroplasty so the patient can tentatively have early mobilization and resume weightbearing as tolerated with assistive device postop day #1. Discussed will have internal medicine evaluate the patient for preoperative medical clearance. Plan for surgery later this afternoon. Thank you for the consult. Dictation was produced using [employer] dictation software, please excuse any grammatical, word or spelling errors.
--- NOTE | 2024-08-26 11:01 | P.CONS ---
History of Present Illness - Reason for Consult Consult date: 08/26/24 Pre operative clearance - History of Present Illness Patient is a 89 year old male with a past medical history of hypertension who presented to the ED on 08/25 for left hip pain post fall. He states he was getting out of the car yesterday evening when he slipped on ice and fell on his left side. He denies hitting his head, or any loss of consciousness. He called his son who helped him into the house, but was unable to get up later in the evening to get a glass of water. Femur x-ray showed a suspected femoral neck fracture with impaction, which was confirmed on CT of the hip. He was admitted to the Orthopedic surgery service with plans for a left hip hemiarthroplasty on 08/26. Hospitalist team was consulted for preoperative medical clearance. In the ED, his BP was 127/71, pulse rate of 74, respiratory rate of 20 and currently saturating at 94% on 2L 02 by nasal cannula. WBC of 13.9 with a neutrophilic shift, sodium of 132, creatinine of 0.78, PT of 10.8, INR of 1.0. His EKG was independently reviewed, and shows sinus rhythm with 1st degree atrioventricular block, and a left bundle branch block. His chest xray was also reviewed independently, and shows mild cardiomegaly with mild bilateral opacities. He den ies any active chest pain, SOB, or palpitations. He has a history of smoking cigars in the remote past, and has one drink daily. He denies illicit drug use. He takes a baby aspirin daily. He has good functional status, and ambulates without the use of a cane/walker. He lives alone, but has a supportive family nearby. Pertinent positives and negatives as discussed in HPI, a complete review of sys tems was performed and all other systems are negative. Patient seen and examined at bedside. Vital signs reviewed General: nontoxic, no distress, appears at stated age. on 2L NC. Derm: warm, dry Head: atraumatic, normocephalic, symmetric Eyes: EOMI, no lid lag, anicteric sclera, pupils equal round reactive to light ENT: Nose and ears atraumatic Neck: No thyromegaly, supple Mouth: no lip lesion, mucus membranes moist Cardiovascular: S1S2 reg, no murmur, trace pedal edema bilaterally Lungs: Diminished breath sounds bilaterally, no rhonchi, no rales, no wheeze, no accessory muscle use Abdominal: soft, nontender to palpation, no guarding, no appreciable organomegaly Ext: no gross muscle atrophy, Left hip tender to palpation on the lateral and posterior aspect, no swelling, mild bruising of thigh on the medial aspect noted, no contractures Neuro: CN II-XII grossly intact Psych: Alert, oriented, appropriate affect Assessment/Plan: [Active:] Left femoral neck fracture with impaction -Managed by Orthopedic surgery, plan for left hip hemiarthroplasty later today -Acetominophen, Morphine, Dilaudid PRN for pain per Orthopedic surgery -PT/OT evaluation post surgery -Pre operative assessment: The patient's RCRI score is 0, with a 3.9% risk of major cardiac event. The patient is medically optimized, and he is at acceptable risk for the proposed procedure. Leukocytosis: -Continue to monitor, will recheck CBC tomorrow [Chronic:] Hypertension Thank you for the consult. Leah [facility] MD 08/26/2024 10:00 AM Past Medical History Past Medical History: Hyperlipidemia, Hypertension History of Any Multi-Drug Resistant Organisms: None Reported Past Surgical History: No Surgical Hx Reported Past Anesthesia/Blood Transfusion Reactions: No Reported Reaction Past Psychological History: No Psychological Hx Reported Smoking Status: Light tobacco smoker Past Alcohol Use History: Daily Past Drug Use History: None Reported - Past Family History Mother Family Medical History: No Reported History Medications and Allergies Home Medications Medication Instructions Recorded Confirmed Type Aspirin EC [Ecotrin Low Dose] 81 mg PO DAILY 12/07/21 08/26/24 History Losartan [Cozaar] 25 mg PO DAILY 12/07/21 08/26/24 History Multivitamins, Thera [Multivitamin 1 tab PO DAILY 12/07/21 08/26/24 History (formulary)] Cholecalciferol [Vitamin D3 (10 10 mcg PO DAILY 08/26/24 08/26/24 History Mcg = 400 Iu)] Naproxen 500 mg PO BID PRN 08/26/24 08/26/24 History Allergies Allergy/AdvReac Type Severity Reaction Status Date / Time No Known Allergies Allergy Verified 08/26/24 07:01 Physical Exam Vitals: Vital Signs Temp Pulse Resp BP Pulse Ox 08/26/24 08:32 87 18 127/70 94 L 08/26/24 07:48 89 18 132/80 88 L 08/26/24 06:27 74 20 127/71 08/26/24 05:17 97.7 F 75 24 137/84 95 Intake and Output 08/25/24 08/26/24 08/26/24 22:59 06:59 14:59 Other: Weight 86.183 kg Results CBC & Chem 7: 08/26/24 05:31 08/26/24 05:31 Labs: Abnormal Lab Results - Last 24 Hours (Table) 08/26/24 08/26/24 08/26/24 Range/Units 05:26 05:31 05:31 WBC 13.9 H (3.8-10.6) k/uL RBC 4.27 L (4.30-5.90) m/uL Neutrophils # 12.7 H (1.3-7.7) k/uL Lymphocytes # 0.6 L (1.0-4.8) k/uL Sodium 132 L (137-145) mmol/L Glucose 141 H (74-99) mg/dL POC Glucose (mg/dL) 131 H (70-110) mg/dL
[2024-08-26] MEDS ORDERED: ACETAMINOPHEN TAB 325 MG TAB PO PRN (12:00)
[2024-08-26] MEDS: IV FLUID CONTINUATION 1,000 ML IV ONE (15:52)
[2024-08-26] MEDS: LACTATED RINGERS 1,000 ML IV ONE (15:54)
[2024-08-26] MEDS: MIDAZOLAM 2 MG/2 ML VIAL IVP ONE (15:57)
--- NOTE | 2024-08-26 16:09 | P.ANPRN ---
Procedure Note - Anesthesia - Nerve Block Performed Left Caden Single Time Out Performed: Yes Date of Procedure: 08/26/24 Procedure Start Time: 15:57 Procedure Stop Time: 16:02 Location of Patient: PreOp Indication: Acute Post-Operative Pain, Analgesia, Requested by Surgeon Sedation Type: Sedate with meaningful contact maintained Preparation: Sterile Prep Position: Supine Catheter: None Needle Types: Pajunk Needle Gauge: 21 Ultrasound used to visualize needle placement: Yes Ultrasound used to observe medication spread: Yes Injectate: 0.5% Ropivacaine (see comment for volume) (Ropiv 20ml+4mg Decadron.) Blood Aspirated: No Pain Paresthesia on Injection Noted: No Resistance on Injection: Normal Image Stored and Saved: Yes Events: Uneventful and Well Tolerated
[2024-08-26] MEDS ORDERED: SUCCINYLCHOLINE CHLORIDE 200 MG/10 ML VIAL IV ONE (16:26)
[2024-08-26] MEDS ORDERED: ROCURONIUM 10 MG/ML (5 ML VIAL) IV ONE (16:26)
[2024-08-26] MEDS ORDERED: ROPIVACAINE 5 MG/ML 30 ML VIAL ONE (16:26)
[2024-08-26] MEDS ORDERED: GLYCOPYRROLATE 0.2 MG/ML 2 ML VIAL ONE (16:26)
[2024-08-26] MEDS ORDERED: ceFAZolin 1 GM/50 ML BAG (PMX) ONE (16:26)
[2024-08-26] MEDS ORDERED: LIDOCAINE 1% INJ 10MG/ML (20 ML MDV) ONE (16:26)
[2024-08-26] MEDS ORDERED: PROPOFOL 10 MG/ML 20 ML VIAL IV ONE (16:26)
[2024-08-26] MEDS ORDERED: ACETAMINOPHEN IV (For NPO) 1,000 MG/100 ML VIAL ONE (16:26)
[2024-08-26] MEDS ORDERED: DEXAMETHASONE SOD PHOSPHATE 4 MG/ML 1 ML VIAL ONE (16:26)
[2024-08-26] MEDS ORDERED: NEOSTIGMINE 1 MG/ML 10 ML VIAL ONE (16:26)
[2024-08-26] MEDS ORDERED: fentaNYL (PF) 50 MCG/ML 2 ML AMP ONE (16:26)
[2024-08-26] MEDS ORDERED: PHENYLEPHRINE-0.9% NACL SYG 1,000 MCG/10 ML SYRINGE ONE (16:26)
[2024-08-26] MEDS ORDERED: TRANEXAMIC 1,000 MG/100ML-NACL PREMIX BAG ONE (16:26)
[2024-08-26] MEDS: ROPIVACAINE/EPI/CLONIDINE/KET 50 ML SYRINGE MISCELLANE PRN (17:35)
[2024-08-26] MEDS: EPINEPHrine 2 MG in SODIUM CHLORIDE 0.9% 200 ML IV ONE (17:39)
--- NOTE | 2024-08-26 18:38 | XR ---
Fluoroscopy INDICATION: Pain FINDINGS: Fluoroscopy time: 23.9 seconds. Total dose area product (DAP) in uGy*m?, mGy*cm? (or similar): 1.3718 Images obtained: 7. Images document placement of a left hip prosthesis IMPRESSION: 1. Documentation of fluoroscopy. [facility], Workstation: [facility], 08/26/2024 6:36 PM
--- NOTE | 2024-08-26 18:39 | FL ---
Fluoroscopy INDICATION: Pain FINDINGS: Fluoroscopy time: 23.9 seconds. Total dose area product (DAP) in uGy*m?, mGy*cm? (or similar): 1.3718 Images obtained: 0. IMPRESSION: 1. Documentation of fluoroscopy. [facility], Workstation: [facility], 08/26/2024 6:37 PM
[2024-08-26] MEDS ORDERED: HYDROmorphone 0.5 MG/0.5 ML SYRINGE IVP PRN ×3 (19:15)
[2024-08-26] MEDS ORDERED: ONDANSETRON 4 MG/2 ML VIAL IVP PRN (19:15)
[2024-08-26] MEDS ORDERED: TEMAZEPAM 15 MG CAP PO PRN (19:15)
[2024-08-26] MEDS ORDERED: MAGNESIUM HYDROXIDE 2,400 MG/30 ML CUP PO PRN (19:15)
--- NOTE | 2024-08-26 19:15 | P.OP ---
Date of Procedure: 08/26/24 Preoperative Diagnosis: Displaced left femoral neck fracture Postoperative Diagnosis: Same Procedure(s) Performed: Left direct anterior hip linn arthroplasty Implants: [place] Accolade C Size #3 STD offset, Bipolar head (49 mm OD, 28 mm ID head with +0 mm neck) Anesthesia: SHAJI, regional Surgeon: Maximo Negrete Medical Records Receptionist #1: Jaya Saucedo Estimated Blood Loss (ml): 300 IV fluids (ml): 800 Pathology: none sent Condition: stable Disposition: PACU Indications for Procedure: I met with the patient and their family to discuss treatment options. The patient has a displaced femoral neck fracture and based on their age, activity level, and medical comorbidities I recommended a hip hemiarthroplasty to facilitate early mobilization. My recommendation was to perform the hemiarthroplasty through a direct anterior approach to help lower the risk of dislocation and improve postoperative recovery and use cemented fixation of the femoral component to reduce the risk of fracture and postoperative thigh pain. We discussed the potential risks and complications of a hemiarthroplasty for displaced femoral neck fracture at length. Risks discussed include are certainly not limited to risks from anesthesia, superficial infection requiring local wound care and possibly surgical debridement, deep periprosthetic joint infection and the treatment for this, damage to local blood vessels or nerves particularly the lateral femoral cutaneous nerve, intraoperative fracture, postoperative periprosthetic fracture, leg length discrepancy, hip dislocation, aseptic loosening, groin pain, thigh pain, progression of arthritis requiring conversion to total hip arthroplasty, complications related to cementing the component, an inability to regain preinjury level of function, DVT, PE, acute coronary event, stroke, pneumonia, urinary tract infection, failure to thrive, and possibly . The patient and their family understand that while these are the most common complications other less common complications are possible. They provided their verbal and written consent to go forward with surgery. Operative Findings: Displaced femoral neck fracture with large hemarthrosis Description of Procedure: The patient was identified in the preoperative holding area and the correct hip was marked with my initials. I reviewed the procedure and consent with the patient. All of their questions were answered. The patient was then brought back into the operating room by anesthesia. While on the [facility] anesthesia was administered by the anesthesia team. Preoperative antibiotics and tranexamic acid were also given. After the patient was under anesthesia I examined their ankles to determine their preoperative leg length discrepancy. The skin over the anterior aspect of the hip was shaved to remove hair over the site of planned incision. Both feet and ankles were padded with webril and boots for the [place] were applied. The patient was then carefully transferred onto the [place] table. A perineal post was immediately placed. The arms were placed on arm holders and were well-padded. Both boots were secured to the spars on the [place] table. The patient was positioned so that the pelvis was centered over the post. Nonsterile drapes were applied. A timeout was performed identifying the correct patient, operative extremity, and procedure. At this point fluoroscopy was brought in to take preoperative images of the pelvis and operative hip. A metallic bar was used to create a bi-ischial line for use as a reference to leg length adjustments during the procedure. Global offset was also measured on both the operative and nonoperative leg. Fluoroscopy was then brought out and a pre-scrub using a chlorhexidine scrub brush was performed. The operative limb was then prepped and draped in the standard sterile fashion. An anterior longitudinal incision was made lateral and distal to the ASIS. The skin and subcutaneous tissues were incised sharply. The underlying tensor fascia was identified and incised in its midportion. The fascia was dissected free from the underlying muscle and the muscle belly was retracted. A blunt tipped cobra retractor was placed over the superior neck under the muscle fibers of the gluteus minimus. The deep enveloping fascia of the tensor was incised. The anterior leash of vessels were then identified and cauterized. The fascia between the rectus and the capsule was then incised and the pre-capsular fat was excised. A second Cobra was placed inferior to the neck. The interval between the rectus and iliocapsularis and the hip capsule was developed and a retractor was placed carefully over the anterior rim of the acetabulum. A T-shaped anterior capsulotomy was performed. A hemarthrosis consistent with a femoral neck fracture was identified. The superior capsular leaflet was left in place in the inferior capsular flap was excised. The Cobra retractors were placed intracapsularly. A displaced femoral neck fracture was then identified. We then made a femoral neck osteotomy according to preoperative and intraoperative templating and confirmed the level of the osteotomy using fluoroscopic imaging. The femoral head was removed, passed off to the back table, and sized. The superior capsular flap was excised. On inspection of the acetabulum there were minimal degenerative changes with intact cartilage. Attention was then turned to the femur. The remnant dorsal lateral capsule was excised. The short external rotators were visible and protected. A bone hook was used to confirm appropriate translation of the trochanter away from the acetabulum. The leg was then extended and adducted and the bone hook was used to elevate the femur for broaching. A box osteotome and blunt tipped canal sound was then utilized to gain access to the femoral canal. We then sequentially broached the femur in appropriate anteversion until torsional stability was achieved and the implant was felt to have reached the appropriate size to allow trialing. The neck cut was brought flush to the trial broach with a calcar planar. A trial neck and head were then placed onto the broach and the hip was atraumatically reduced under direct visualization. External rotation to 90 was performed to assess stability. Fluoroscopy was brought in. An AP and lateral fluoroscopic image of the proximal femur was obtained to assess position and fill of the trial broach. An AP of the pelvis was then obtained and matched to the preoperative image taken. A bi-ischial bar was then placed and clara surements were taken to assess changes in length and offset. The hip was then carefully dislocated, the proximal femur was exposed, and the trial implants were removed. The proximal femur was then prepared for cementing. The canal was thoroughly irrigated with pulsatile lavage to remove blood and marrow contents. A cement restrictor was placed to a depth just distal to the tip of the final implant. Epinephrine-soaked gauze was then packed into the proximal femur. 2 bags of cement with antibiotics were then mixed using a centrifuge and placed into a cement gun. Anesthesia was notified that cementing was about to commence to make sure the patient was appropriately ventilated and hydrated. Once the cement had reached appropriate consistency, the cement gun was used to fill the canal in a retrograde fashion starting at the restrictor. Cement was then pressurized into the canal with a blue tipped rail operations controller. The stem was then carefully introduced into the cement taking care to guide the implant into appropriate version. The stem was held in position until the cement had fully set. All extra cement was removed while the cement was hardening. The trunnion was cleansed and the final head was tapped into place to engage the Morin taper. The acetabulum was irrigated and visualized to be free of debris. The hip was carefully reduced. Stability was checked clinically with external rotation to 90 and there was no evidence of instability. Final fluoroscopic images were taken. The wound was then thoroughly irrigated with Irrisept. 3 L of sterile saline was irrigated through the wound using pulsatile lavage. Local anesthetic cocktail was injected into the soft tissues around the surgical field. A deep drain was placed. The wound was then closed in layers. A sterile dressing was placed over the surgical incision and drain site. The drapes were taken down and the patient was carefully transferred off of the [place] table. Following removal of the boots the leg lengths felt acceptable. The patient was then taken to recovery room having tolerated the procedure well. Jaya Saucedo MD was required as a skilled malt specifications control assistant due to the complexity of surgery for patient positioning, draping, exposure, retraction, closure of wound and application of dressing. PLAN: The patient can weight-bear as tolerated on the operative extremity. 2 doses of postoperative antibiotics. DVT prophylaxis with aspirin 81 mg twice a day based on preoperative risk stratification. Physical therapy for gait training.
[2024-08-26 20:29] LABS: Basophils % (A) 0 %; Eosinophils % (A) 0 %; HCT 39.9 % (39.0-53.0); HGB 13.3 gm/dL (13.0-17.5); Lymphocytes # (A) 0.4 k/uL (1.0-4.8); Lymphocytes % (A) 3 %; MCH 33.2 pg (25.0-35.0); MCHC 33.4 g/dL (31.0-37.0); MCV 99.1 fL (80.0-100.0); Mean Platelet Volume 7.2; Monocytes # (A) 0.4 k/uL (0-1.0); Monocytes % (A) 3 %; Neutrophils # (A) 13.6 k/uL (1.3-7.7); Neutrophils % (A) 94 %; Platelet Count 160 k/uL (150-450); RBC 4.02 m/uL (4.30-5.90); RDW 13.3 % (11.5-15.5); WBC 14.5 k/uL (3.8-10.6)
[2024-08-26] MEDS: SENNOSIDES-DOCUSATE SODIUM 1 EACH TAB PO SCH (21:28)
[2024-08-26] MEDS: SODIUM CHLORIDE 0.9% 1,000 ML IV SCH (23:38)
[2024-08-26] MEDS: HYDROcodone/APAP 5-325MG 1 EACH TAB PO PRN (23:38)
[2024-08-27 05:22] LABS: Basophils % (A) 0 %; Eosinophils % (A) 0 %; HCT 34.2 % (39.0-53.0); HGB 11.7 gm/dL (13.0-17.5); Lymphocytes # (A) 0.5 k/uL (1.0-4.8); Lymphocytes % (A) 3 %; MCH 33.8 pg (25.0-35.0); MCHC 34.3 g/dL (31.0-37.0); MCV 98.7 fL (80.0-100.0); Mean Platelet Volume 7.4; Monocytes # (A) 0.8 k/uL (0-1.0); Monocytes % (A) 5 %; Neutrophils # (A) 15.2 k/uL (1.3-7.7); Neutrophils % (A) 92 %; Platelet Count 145 k/uL (150-450); RBC 3.46 m/uL (4.30-5.90); RDW 13.2 % (11.5-15.5); WBC 16.5 k/uL (3.8-10.6)
[2024-08-27] MEDS: MULTIVITAMINS, THERA 1 EACH TAB PO SCH (08:25)
[2024-08-27] MEDS: LOSARTAN 25 MG TAB PO SCH (08:25)
--- NOTE | 2024-08-27 09:33 | P.PN ---
Subjective Progress Note Date: 08/27/24 Principal diagnosis: Status post left hip hemiarthroplasty This is an 89 year-old male post left hip hemiarthroplasty. This is post-op day 1. The patient was evaluated in the recliner chair at the bedside today. The patient denies nausea, vomiting, abdominal pain, chest pain, or shortness of breath this morning. He states his pain is controlled at this time. The patient has not been up with physical therapy yet this morning. Objective - Vital Signs Vital signs: Vital Signs Temp 97.8 F 08/27/24 07:38 Pulse 80 08/27/24 07:38 Resp 18 08/27/24 07:38 BP 151/82 08/27/24 07:38 Pulse Ox 92 L 08/27/24 07:38 FiO2 Intake & Output 08/26/24 08/27/24 08/27/24 18:59 06:59 18:59 Intake Total 1301 540 Output Total 300 750 Balance 1001 -210 Weight 86.183 kg Intake: IV 1301 Oral 540 Output: Urine 750 Straight 650 Estimated Blood Loss 300 Other: # Voids 1 - Exam The patient does not appear in acute distress. Alert and orientated x3. Dressing is clean dry and intact. Incision appears fine with no erythema or active drainage. Calf is soft and nontender. Good foot and ankle motion without difficulty. Sensation and circulatory status is intact. - Labs CBC & Chem 7: 08/27/24 04:52 08/26/24 05:31 Labs: Abnormal Lab Results - Last 24 Hours (Table) 08/26/24 08/27/24 Range/Units 20:05 04:52 WBC 14.5 H 16.5 H (3.8-10.6) k/uL RBC 4.02 L 3.46 L (4.30-5.90) m/uL Hgb 11.7 L (13.0-17.5) gm/dL Hct 34.2 L (39.0-53.0) % Plt Count 145 L (150-450) k/uL Neutrophils # 13.6 H 15.2 H (1.3-7.7) k/uL Lymphocytes # 0.4 L 0.5 L (1.0-4.8) k/uL Assessment and Plan (1) Status post hip surgery Current Visit: Yes Status: Acute Code(s): Z98.890 - OTHER SPECIFIED POSTPROCEDURAL STATES SNOMED Code(s): 738680332 (2) Fracture of femoral neck, left Current Visit: Yes Status: Acute Code(s): S72.002A - FRACTURE OF UNSP PART OF NECK OF LEFT FEMUR, INIT SNOMED Code(s): 1789853 Plan: 1. Continue pain control 2. Anticoagulation with Aspirin 81 mg BID 3. Start physical therapy and ambulation, weightbearing as tolerated. 4. Anticipate discharge home with homecare vs. rehab depending on how he does with therapy.
[2024-08-27 09:46] LABS: African American GFR (CKD) >90 (>60 ml/min/1.73 sqM); Anion Gap 5 mmol/L; Blood Urea Nitrogen 11 mg/dL (9-20); Calcium 7.6 mg/dL (8.4-10.2); Carbon Dioxide 26 mmol/L (22-30); Chloride 99 mmol/L (98-107); Glucose 129 mg/dL (74-99); Non-African American GFR(CKD) 78 (>60 ml/min/1.73 sqM); Potassium 4.2 mmol/L (3.5-5.1); Sodium 130 mmol/L (137-145)
[2024-08-27] MEDS: ASPIRIN 81 MG PO SCH (10:43)
--- NOTE | 2024-08-27 14:23 | P.PN ---
Subjective Progress Note Date: 08/27/24 Hospital Course: Patient is a 89 year old male with a past medical history of hypertension who presented to the ED on 08/25 for left hip pain post fall. He states he was getting out of the car yesterday evening when he slipped on ice and fell on his left side. He denies hitting his head, or any loss of consciousness. He called his son who helped him into the house, but was unable to get up later in the evening to get a glass of water. Femur x-ray showed a suspected femoral neck fracture with impaction, which was confirmed on CT of the hip. He was admitted to the Orthopedic surgery service with plans for a left hip hemiarthroplasty was performed on on 08/26. Patient tolerated procedure well. Was able to ambulate on 08/27 Subjective: Doing well today, pain is under control Pertinent positives and negatives as discussed above, a complete review of systems was performed and all other systems are negative. Vitals Signs Reviewed. General: [nontoxic], [no distress], [appears at stated age] Derm: [warm], [dry] Head: [atraumatic], [normocephalic], [symmetric] Eyes: [EOMI], [no lid lag], [anicteric sclera] Mouth: [no lip lesion], [mucus membranes moist] Cardiovascular: [S1S2 reg], [no murmur] Lungs: [CTA bilateral], [no rhonchi, no rales] , [no accessory muscle use] Abdominal: [soft], [ nontender to palpation], [no guarding], [no appreciable organomegaly] Ext: [no gross muscle atrophy], [trace edema], [no contractures], left hip dressing clean and dry Neuro: [ CN II-XI grossly intact], [no focal neuro deficits] Psych: [Alert], [oriented], [appropriate affect] Left femoral neck fracture with impaction status post left hip hemiarthroplasty 08/26/2024 Acute postop blood loss anemia -Managed by Orthopedic surgery, plan for left hip hemiarthroplasty later today -Acetominophen, Morphine, Dilaudid PRN for pain per Orthopedic surgery -PT/OT evaluation post surgery -Pre operative assessment: The patient's RCRI score is 0, with a 3.9% risk of major cardiac event. The patient is medically optimized, and he is at acceptable risk for the proposed procedure. Leukocytosis: Euvolemic hyponatremia -Continue to monitor, will recheck CBC and BMP tomorrow -Continue NS [Chronic:] Hypertension Objective - Vital Signs Vital signs: Vital Signs Temp 97.8 F 08/27/24 07:38 Pulse 80 08/27/24 07:38 Resp 18 08/27/24 07:38 BP 151/82 08/27/24 07:38 Pulse Ox 92 L 08/27/24 07:38 FiO2 Intake & Output 08/26/24 08/27/24 08/27/24 18:59 06:59 18:59 Intake Total 1301 540 Output Total 300 750 Balance 1001 -210 Weight 86.183 kg Intake: IV 1301 Oral 540 Output: Urine 750 Straight 650 Estimated Blood Loss 300 Other: Voiding Method Toilet # Voids 1 - Labs CBC & Chem 7: 08/27/24 04:52 08/27/24 04:52 Labs: Abnormal Lab Results - Last 24 Hours (Table) 08/26/24 08/27/24 08/27/24 Range/Units 20:05 04:52 04:52 WBC 14.5 H 16.5 H (3.8-10.6) k/uL RBC 4.02 L 3.46 L (4.30-5.90) m/uL Hgb 11.7 L (13.0-17.5) gm/dL Hct 34.2 L (39.0-53.0) % Plt Count 145 L (150-450) k/uL Neutrophils # 13.6 H 15.2 H (1.3-7.7) k/uL Lymphocytes # 0.4 L 0.5 L (1.0-4.8) k/uL Sodium 130 L (137-145) mmol/L Glucose 129 H (74-99) mg/dL Calcium 7.6 L (8.4-10.2) mg/dL
[2024-08-27] MEDS: HYDROcodone/APAP 10-325MG 1 EACH TAB PO PRN (20:56)
[2024-08-28] MEDS: PANTOPRAZOLE 40 MG TABLET PO SCH (05:10)
--- NOTE | 2024-08-28 08:07 | P.PN ---
Subjective Progress Note Date: 08/28/24 Principal diagnosis: Status post left hip hemiarthroplasty This is an 89 year-old male post left hip hemiarthroplasty. This is post-op day 2. The patient was evaluated at the bedside today. The patient denies nausea, vomiting, abdominal pain, chest pain, or shortness of breath this morning. He states his pain is controlled at this time. The patient has been up with physic al therapy. Objective - Vital Signs Vital signs: Vital Signs Temp 97.6 F 08/28/24 02:00 Pulse 95 08/27/24 20:00 Resp 18 08/27/24 14:00 BP 127/71 08/28/24 02:00 Pulse Ox 90 L 08/28/24 02:00 FiO2 Intake & Output 08/27/24 08/28/24 08/28/24 18:59 06:59 18:59 Output Total 1375 Balance -1375 Output: Urine 1375 Other: Voiding Method Toilet # Voids 4 - Exam The patient does not appear in acute distress. Alert and orientated x3. Dressing is clean dry and intact. Incision appears fine with no erythema or active drainage. Calf is soft and nontender. Good foot and ankle motion without difficulty. Sensation and circulatory status is intact. - Labs CBC & Chem 7: 08/27/24 04:52 08/27/24 04:52 Labs: Abnormal Lab Results - Last 24 Hours (Table) 08/27/24 Range/Units 04:52 Sodium 130 L (137-145) mmol/L Glucose 129 H (74-99) mg/dL Calcium 7.6 L (8.4-10.2) mg/dL Assessment and Plan (1) Status post hip surgery Current Visit: Yes Status: Acute Code(s): Z98.890 - OTHER SPECIFIED POSTPROCEDURAL STATES SNOMED Code(s): 765051806 (2) Fracture of femoral neck, left Current Visit: Yes Status: Acute Code(s): S72.002A - FRACTURE OF UNSP PART OF NECK OF LEFT FEMUR, INIT SNOMED Code(s): 7642231 Plan: 1. Continue pain control 2. Anticoagulation with Aspirin 81 mg BID 3. Continue physical therapy and ambulation, weightbearing as tolerated. 4. Anticipate discharge to skilled rehab most likely.
[2024-08-28 10:23] LABS: Blood Urea Nitrogen 8.4 mg/dL (9.0-27.0); Calcium 7.7 mg/dL (8.7-10.3); Carbon Dioxide 24.2 mmol/L (21.6-31.8); Chloride 103 mmol/L (96-109); Glucose 120 mg/dL (70-110); Potassium 3.7 mmol/L (3.5-5.5); Sodium 135 mmol/L (135-145)
--- NOTE | 2024-08-28 16:50 | P.PN ---
Subjective Progress Note Date: 08/28/24 Hospital Course: Patient is a 89 year old male with a past medical history of hypertension who presented to the ED on 08/25 for left hip pain post fall. He states he was getting out of the car yesterday evening when he slipped on ice and fell on his left side. He denies hitting his head, or any loss of consciousness. He called his son who helped him into the house, but was unable to get up later in the evening to get a glass of water. Femur x-ray showed a suspected femoral neck fracture with impaction, which was confirmed on CT of the hip. He was admitted to the Orthopedic surgery service with plans for a left hip hemiarthroplasty was performed on on 08/26. Patient tolerated procedure well. Was able to ambulate on 08/27. Lik[facility] discharge to [facility] Pertinent Imaging: No new imaging Subjective: Feeling fatigued today, worked with physical therapy, pain is under control Pertinent positives and negatives as discussed above, a complete review of systems was performed and all other systems are negative. Vitals Signs Reviewed. General: [nontoxic], [no distress], [appears at stated age] Derm: [warm], [dry] Head: [atraumatic], [normocephalic], [symmetric] Eyes: [EOMI], [no lid lag], [anicteric sclera] Mouth: [no lip lesion], [mucus membranes moist] Cardiovascular: [S1S2 reg], [no murmur] Lungs: [CTA bilateral], [no rhonchi, no rales] , [no accessory muscle use] Abdominal: [soft], [ nontender to palpation], [no guarding], [no appreciable organomegaly] Ext: [no gross muscle atrophy], [no edema], [no contractures] Neuro: [ CN II-XI grossly intact], [no focal neuro deficits] Psych: [Alert], [oriented], [appropriate affect] Data Reviewed Today: Pertinent Labs: Sodium improved to 135, glucose is well-controlled, creatinine normalGeneral: [nontoxic], [no distress], [appears at stated age] Derm: [warm], [dry] Head: [atraumatic], [normocephalic], [symmetric] Eyes: [EOMI], [no lid lag], [anicteric sclera] Mouth: [no lip lesion], [mucus membranes moist] Cardiovascular: [S1S2 reg], [no murmur] Lungs: [CTA bilateral], [no rhonchi, no rales] , [no accessory muscle use] Abdominal: [soft], [ nontender to palpation], [no guarding], [no appreciable organomegaly] Ext: [no gross muscle atrophy], [trace edema], [no contractures], left hip dressing clean and dry Neuro: [ CN II-XI grossly intact], [no focal neuro deficits] Psych: [Alert], [oriented], [appropriate affect] Left femoral neck fracture with impaction status post left hip hemiarthroplasty 08/26/2024 Acute postop blood loss anemia -Managed by Orthopedic surgery, plan for left hip hemiarthroplasty later today -Acetominophen, Morphine, Dilaudid PRN for pain per Orthopedic surgery -PT/OT evaluation post surgery -Pre operative assessment: The patient's RCRI score is 0, with a 3.9% risk of major cardiac event. The patient is medically optimized, and he is at acceptable risk for the proposed procedure. -Patient is medically cleared for discharge Leukocytosis: Euvolemic hyponatremia, resolved -Discontinue normal saline [Chronic:] Hypertension Objective - Vital Signs Vital signs: Vital Signs Temp 98.5 F 08/28/24 13:44 Pulse 90 08/28/24 13:44 Resp 16 08/28/24 13:44 BP 128/66 08/28/24 13:44 Pulse Ox 92 L 08/28/24 13:44 FiO2 Intake & Output 08/27/24 08/28/24 08/28/24 18:59 06:59 18:59 Output Total 1375 Balance -1375 Output: Urine 1375 Other: Voiding Method Toilet # Voids 4 - Labs CBC & Chem 7: 08/27/24 04:52 08/28/24 03:09 Labs: Abnormal Lab Results - Last 24 Hours (Table) 08/28/24 Range/Units 03:09 BUN 8.4 L (9.0-27.0) mg/dL BUN/Creatinine Ratio 10.50 L (12.00-20.00) Ratio Glucose 120 H (70-110) mg/dL Calcium 7.7 L (8.7-10.3) mg/dL
[2024-08-28 19:30] LABS: Basophils % (A) 0 %; Eosinophils # (A) 0.4 k/uL (0-0.7); Eosinophils % (A) 3 %; HCT 35.7 % (39.0-53.0); HGB 11.8 gm/dL (13.0-17.5); Lymphocytes # (A) 1.2 k/uL (1.0-4.8); Lymphocytes % (A) 7 %; MCH 33.1 pg (25.0-35.0); MCHC 33.2 g/dL (31.0-37.0); Monocytes # (A) 0.9 k/uL (0-1.0); Monocytes % (A) 6 %; Neutrophils # (A) 13.7 k/uL (1.3-7.7); Neutrophils % (A) 83 %; Platelet Count 193 k/uL (150-450); RBC 3.57 m/uL (4.30-5.90); RDW 13.1 % (11.5-15.5); WBC 16.4 k/uL (3.8-10.6)
--- NOTE | 2024-08-29 08:16 | P.PN ---
Subjective Progress Note Date: 08/29/24 Principal diagnosis: Status post left hip hemiarthroplasty This is an 89 year-old male post left hip hemiarthroplasty. This is post-op day 3. The patient was evaluated at the bedside today. The patient denies nausea, vomiting, abdominal pain, chest pain, or shortness of breath this morning. He states his pain is controlled at this time. The patient has been up with physic al therapy and states he is moving slow. Objective - Vital Signs Vital signs: Vital Signs Temp 98.0 F 08/29/24 07:04 Pulse 96 08/29/24 07:04 Resp 16 08/29/24 07:04 BP 158/78 08/29/24 07:04 Pulse Ox 94 L 08/29/24 07:04 FiO2 Intake & Output 08/28/24 08/29/24 08/29/24 18:59 06:59 18:59 Intake Total 540 Output Total 400 650 Balance -400 -110 Intake: Oral 540 Output: Urine 400 650 Other: Voiding Method Toilet # Voids 2 2 - Exam The patient does not appear in acute distress. Alert and orientated x3. Dressing is clean dry and intact. Incision appears fine with no erythema or active drainage. Calf is soft and nontender. Good foot and ankle motion without difficulty. Sensation and circulatory status is intact. - Labs CBC & Chem 7: 08/28/24 19:11 08/28/24 03:09 Labs: Abnormal Lab Results - Last 24 Hours (Table) 08/28/24 08/28/24 Range/Units 03:09 19:11 WBC 16.4 H (3.8-10.6) k/uL RBC 3.57 L (4.30-5.90) m/uL Hgb 11.8 L (13.0-17.5) gm/dL Hct 35.7 L (39.0-53.0) % Neutrophils # 13.7 H (1.3-7.7) k/uL BUN 8.4 L (9.0-27.0) mg/dL BUN/Creatinine Ratio 10.50 L (12.00-20.00) Ratio Glucose 120 H (70-110) mg/dL Calcium 7.7 L (8.7-10.3) mg/dL Assessment and Plan (1) Status post hip surgery Current Visit: Yes Status: Acute Code(s): Z98.890 - OTHER SPECIFIED POSTPROCEDURAL STATES SNOMED Code(s): 475498889 (2) Fracture of femoral neck, left Current Visit: Yes Status: Acute Code(s): S72.002A - FRACTURE OF UNSP PART OF NECK OF LEFT FEMUR, INIT SNOMED Code(s): 0423452 Plan: 1. Continue pain control 2. Anticoagulation with Aspirin 81 mg BID 3. Continue physical therapy and ambulation, weightbearing as tolerated. 4. Anticipate discharge to skilled rehab most likely in the next 1-2 days.
--- NOTE | 2024-08-29 09:05 | XR ---
EXAMINATION TYPE: XR chest 1V portable DATE OF EXAM: 08/29/2024 COMPARISON: 08/26/2024 CLINICAL INDICATION: Male, 89 years old with history of hypoxia; TECHNIQUE: Single frontal view of the chest is obtained. FINDINGS: There is mild cardiomegaly but no pulmonary vascular congestion. There are scattered mild interstitial changes and in scattered small nodules. The graft is no pleural effusion or pneumothorax. There is no airspace consolidation. IMPRESSION: 1. Stable mild cardiomegaly. 2. Probable chronic interstitial changes and small lung nodules possibly granulomas. 3. CT chest might be useful for further evaluation of the lung nodularity and interstitial changes. 4. no definite acute cardiopulmonary disease. [facility], , 08/29/2024 9:03 AM
--- NOTE | 2024-08-29 13:34 | P.PN ---
Subjective Progress Note Date: 08/29/24 Hospital Course: Patient is a 89 year old male with a past medical history of hypertension who presented to the ED on 08/25 for left hip pain post fall. He states he was getting out of the car yesterday evening when he slipped on ice and fell on his left side. He denies hitting his head, or any loss of consciousness. He called his son who helped him into the house, but was unable to get up later in the evening to get a glass of water. Femur x-ray showed a suspected femoral neck fracture with impaction, which was confirmed on CT of the hip. He was admitted to the Orthopedic surgery service with plans for a left hip hemiarthroplasty was performed on on 08/26. Patient tolerated procedure well. Was able to ambulate on 08/27. Likely discharge to [facility] Patient is on nasal cannula 2 L, satting well at 95%, desatted to 86% on room air in the evening,X-ray 08/29: Personally reviewed, interstitial changes, no signs of fluid overload. Patient had CT chest on 12/15/2020 that showed chronic interstitial pulmonary fibrosis Subjective: Feels okay today, complains of left hip pain, denies shortness of breath, cough Pertinent positives and negatives as discussed above, a complete review of syst ems was performed and all other systems are negative. Vitals Signs Reviewed. General: [nontoxic], [no distress], [appears at stated age] Derm: [warm], [dry] Head: [atraumatic], [normocephalic], [symmetric] Eyes: [EOMI], [no lid lag], [anicteric sclera] Mouth: [no lip lesion], [mucus membranes moist] Cardiovascular: [S1S2 reg], [no murmur] Lungs: [CTA bilateral], [no rhonchi, no rales] , [no accessory muscle use] Abdominal: [soft], [ nontender to palpation], [no guarding], [no appreciable org anomegaly] Ext: [no gross muscle atrophy], [no edema], [no contractures] Neuro: [ CN II-XI grossly intact], [no focal neuro deficits] Psych: [Alert], [oriented], [appropriate affect] Data Reviewed Today: Pertinent Labs: Blood work Left femoral neck fracture with impaction status post left hip hemiarthroplasty 08/26/2024 Acute postop blood loss anemia -Managed by Orthopedic surgery, plan for left hip hemiarthroplasty later today -Acetominophen, Morphine, Dilaudid PRN for pain per Orthopedic surgery -PT/OT evaluation post surgery -Pre operative assessment: The patient's RCRI score is 0, with a 3.9% risk of major cardiac event. The patient is medically optimized, and he is at acceptable risk for the proposed procedure. -Patient is medically cleared for discharge Hypoxia in the settings of chronic interstitial pulmonary fibrosis -Incentive spirometry -Follow-up with primary care physician, possible referral to pulmonology, evaluate for AUGIE Leukocytosis: Euvolemic hyponatremia, resolved -Discontinue normal saline [Chronic:] Hypertension Objective - Vital Signs Vital signs: Vital Signs Temp 98.0 F 08/29/24 07:04 Pulse 96 08/29/24 07:04 Resp 16 08/29/24 07:04 BP 158/78 08/29/24 07:04 Pulse Ox 94 L 08/29/24 07:04 FiO2 Intake & Output 08/28/24 08/29/24 08/29/24 18:59 06:59 18:59 Intake Total 540 Output Total 400 650 Balance -400 -110 Intake: Oral 540 Output: Urine 400 650 Other: Voiding Method Toilet # Voids 2 2 - Labs CBC & Chem 7: 08/28/24 19:11 08/28/24 03:09 Labs: Abnormal Lab Results - Last 24 Hours (Table) 08/28/24 Range/Units 19:11 WBC 16.4 H (3.8-10.6) k/uL RBC 3.57 L (4.30-5.90) m/uL Hgb 11.8 L (13.0-17.5) gm/dL Hct 35.7 L (39.0-53.0) % Neutrophils # 13.7 H (1.3-7.7) k/uL
--- NOTE | 2024-08-30 07:44 | P.PN ---
Subjective Progress Note Date: 08/30/24 No acute events overnight per patient. Patient is doing well this morning. The pain in their hip is mild. They have walked to the bathroom with a walker and assistance. They deny chest pain or shortness of breath. Patient has refused physical therapy on Friday, discussed reevaluation today. Objective - Vital Signs Vital signs: Vital Signs Temp 98.4 F 08/30/24 00:34 Pulse 85 08/30/24 00:34 Resp 18 08/30/24 00:34 BP 127/67 08/30/24 00:34 Pulse Ox 97 08/30/24 00:34 FiO2 Intake & Output 08/29/24 08/30/24 08/30/24 18:59 06:59 18:59 Intake Total 860 Output Total 0 Balance 0 860 Intake: Oral 860 Output: Stool 0 Other: Voiding Method Toilet # Voids 5 7 - Exam Patient was examined at bedside. Patient is resting comfortably in bed. No apparent distress. They are awake, alert and able to answer questions. On inspection the left surgical hip dressing is intact, there is no drainage or strikethrough. The skin surrounding the dressing is free of erythema. There is mild swelling in the operative thigh. Operative femoral nerve function is intact. The operative calf is soft to compression and has generalized swelling. The patient is able to actively plantarflex and dorsiflex their operative ankle and toes. Their operative foot appears well perfused. - Labs CBC & Chem 7: 08/28/24 19:11 08/28/24 03:09 Assessment and Plan Assessment: Postop day #4 status post left hip hemiarthroplasty for left transcervical femoral neck fracture status post ground-level fall Left hip pain Plan: Weight-bear as tolerated on operative extremity with walker and assistance. Leave surgical dressing in place. Continue aspirin 81 mg for DVT prophylaxis. Patient's left calf with generalized swelling on exam today, a ultrasound venous Doppler duplex lower extremity left has been ordered. Discussed with nursing team to have PT reevaluate today. Per nursing team patient had discussed denying rehab over the weekend but will reconsider today. Patient's pain has been controlled with oral [place]. Start form completed and placed in chart. [place] paper prescription completed and placed in patient's chart. Dispo: Pending Doppler and PT evaluation today. Anticipate discharge later this afternoon.
[2024-08-30 07:45] VITALS: BP 137/82; PULSE 87; RESP 16; TEMP 98.2
[2024-08-30] MEDS: hydrOXYzine pamoate 25 MG CAP PO PRN (08:42)
--- NOTE | 2024-08-30 08:47 | US ---
EXAMINATION TYPE: US venous doppler duplex LE LT DATE OF EXAM: 08/30/2024 7:38 AM COMPARISON: NONE CLINICAL INDICATION: Male, 89 years old with history of Left lower extremity calf pain; Pt is current ly taking baby aspirin daily, mild lt leg pain, lt hip fracture, no hx of DVT, Pain TECHNIQUE: The lower extremity deep venous system is examined utilizing real time linear array sonog cynthia with graded compression, color doppler sonography, and spectral doppler. SIDE PERFORMED: Left FINDINGS: VESSELS IMAGED: Common Femoral Vein Deep Femoral Vein Greater Saphenous Vein * Femoral Vein Popliteal Vein Small Saphenous Vein * Proximal Calf Veins (* superficial vessels) Left Leg: Negative for DVT, Color Doppler imaging shows patency of the vessels. Spectral waveforms a re within normal limits. IMPRESSION: No evidence for DVT within the left lower extremity imaged from the groin to the upper calf. [facility], Workstation: [id number], 08/30/2024 8:45 AM
--- NOTE | 2024-08-30 11:57 | P.PN ---
Subjective Progress Note Date: 08/30/24 Hospital Course: Patient is a 89 year old male with a past medical history of hypertension who presented to the ED on 08/25 for left hip pain post fall. He states he was getting out of the car yesterday evening when he slipped on ice and fell on his left side. He denies hitting his head, or any loss of consciousness. He called his son who helped him into the house, but was unable to get up later in the evening to get a glass of water. Femur x-ray showed a suspected femoral neck fracture with impaction, which was confirmed on CT of the hip. He was admitted to the Orthopedic surgery service with plans for a left hip hemiarthroplasty was performed on on 08/26. Patient tolerated procedure well. Was able to ambulate on 08/27. Likely discharge to [facility] Patient is on room air, satting well ,X-ray 08/29: Personally reviewed, interstitial changes, no signs of fluid overload. Patient had CT chest on 12/15/2020 that showed chronic interstitial pulmonary fibrosis Medically stable for discharge Lower extremity venous duplex negative for DVT Subjective: Feels okay today, complains of left hip pain, denies shortness of breath, cough Pertinent positives and negatives as discussed above, a complete review of systems was performed and all other systems are negative. Vitals Signs Reviewed. General: [nontoxic], [no distress], [appears at stated age] Derm: [warm], [dry] Head: [atraumatic], [normocephalic], [symmetric] Eyes: [EOMI], [no lid lag], [anicteric sclera] Mouth: [no lip lesion], [mucus membranes moist] Cardiovascular: [S1S2 reg], [no murmur] Lungs: [CTA bilateral], [no rhonchi, no rales] , [no accessory muscle use] Abdominal: [soft], [ nontender to palpation], [no guarding], [no appreciable organomegaly] Ext: [no gross muscle atrophy], [no edema], [no contractures] Neuro: [ CN II-XI grossly intact], [no focal neuro deficits] Psych: [Alert], [oriented], [appropriate affect] Data Reviewed Today: Pertinent Labs: Blood work Left femoral neck fracture with impaction status post left hip hemiarthroplasty 08/26/2024 Acute postop blood loss anemia -Managed by Orthopedic surgery, plan for left hip hemiarthroplasty later today -Acetominophen, Morphine, Dilaudid PRN for pain per Orthopedic surgery -PT/OT evaluation post surgery -Pre operative assessment: The patient's RCRI score is 0, with a 3.9% risk of major cardiac event. The patient is medically optimized, and he is at acceptable risk for the proposed procedure. -Patient is medically cleared for discharge Hypoxia in the settings of chronic interstitial pulmonary fibrosis, resolved -Incentive spirometry -Follow-up with primary care physician, possible referral to pulmonology, evaluate for AUGIE Leukocytosis: Euvolemic hyponatremia, resolved -Discontinue normal saline Objective - Vital Signs Vital signs: Vital Signs Temp 98.2 F 08/30/24 06:56 Pulse 87 08/30/24 06:56 Resp 16 08/30/24 06:56 BP 137/82 08/30/24 06:56 Pulse Ox 96 08/30/24 11:45 FiO2 Intake & Output 08/29/24 08/30/24 08/30/24 18:59 06:59 18:59 Intake Total 860 Output Total 0 Balance 0 860 Intake: Oral 860 Output: Stool 0 Other: Voiding Method Toilet # Voids 5 7 - Labs CBC & Chem 7: 08/28/24 19:11 08/28/24 03:09
--- NOTE | 2024-08-30 12:15 | P.DS ---
Providers Date of admission: 08/26/24 06:13 Attending physician: Maximo Negrete Consults: 08/26/24 06:13 Consult Physician Urgent Consulting Provider: Janes Membreno Consult Reason/Comments: Pre-op Clearance Do you want consulting provider notified?: Already Contacted Primary care physician: [facility] Course: The patient is a pleasant 89-year-old male with past medical history of hypertension, hyperlipidemia, who presented to the emergency department on 08/26/2024 for a mechanical trip and fall. Per chart review, the patient stated that 8 PM on 08/25/2024 he slipped getting out of a car and fell onto the ground and landed on his left hip. He was unable to get up afterwards so his son carried him into the house onto the couch. Patient attempted to get up off the couch early that morning for a glass of water and was unable to get up secondary to pain and was brought to the emergency department for evaluation. X-ray images of the pelvis and femur demonstrated a left transcervical femoral neck fracture. Orthopedics was consulted and Dr. Negrete ordered a hip CT scan. Hip CT obtained on 08/26/2024 demonstrated left proximal femoral neck fracture with complete displacement. On 08/26/2024 patient underwent left hip hemiarthroplasty. Patient tolerated the procedure well. Patient was transferred to orthopedic floor. Patient was evaluate by physical therapy. On 08/30/2000 sinus patient was examined at bedside in the a.m. and had left calf swelling, a venous Doppler ultrasound was ordered of the left lower extremity which did not show a DVT. Patient was reevaluated by physical therapy and I was notified the patient would not qualify for rehab. The patient stated that they wish to go home with home health care. The patient was examined by medical team and was determined to be medically stable for discharge. Patient's pain has been controlled with oral [place]. Start form completed and placed in chart. [place] paper prescription completed and placed in patient's chart. Please see discharge instructions. Assessment: Postop day #4 status post left hip hemiarthroplasty for left transcervical femoral neck fracture status post ground-level fall Left hip pain Patient Condition at Discharge: Stable Plan - Discharge Summary Discharge Rx Participant: No New Discharge Prescriptions: New Sennosides-Docusate Sodium [Senokot-S] 1 tab PO BID PRN #60 tablet PRN Reason: Constipation Ondansetron [Zofran] 4 mg PO Q6HR PRN #30 tab PRN Reason: Nausea Aspirin 81 mg PO BID #60 tab Omeprazole 20 mg PO DAILY #30 tab HYDROcodone/APAP 5-325MG [[place] 5] 1 - 2 each PO Q6HR PRN #48 tab PRN Reason: Pain No Action Multivitamins, Thera [Multivitamin (formulary)] 1 tab PO DAILY Cholecalciferol [Vitamin D3 (10 Mcg = 400 Iu)] 10 mcg PO DAILY Aspirin EC [Ecotrin Low Dose] 81 mg PO DAILY Losartan [Cozaar] 25 mg PO DAILY Naproxen 500 mg PO BID PRN PRN Reason: Pain Discharge Medication List Aspirin EC [Ecotrin Low Dose] 81 mg PO DAILY 12/07/21 [History] Losartan [Cozaar] 25 mg PO DAILY 12/07/21 [History] Multivitamins, Thera [Multivitamin (formulary)] 1 tab PO DAILY 12/07/21 [History] Cholecalciferol [Vitamin D3 (10 Mcg = 400 Iu)] 10 mcg PO DAILY 08/26/24 [History] Naproxen 500 mg PO BID PRN 08/26/24 [History] Aspirin 81 mg PO BID #60 tab 08/27/24 [Rx] Omeprazole 20 mg PO DAILY #30 tab 08/27/24 [Rx] Ondansetron [Zofran] 4 mg PO Q6HR PRN #30 tab 08/27/24 [Rx] Sennosides-Docusate Sodium [Senokot-S] 1 tab PO BID PRN #60 tablet 08/27/24 [Rx] HYDROcodone/APAP 5-325MG [[place] 5] 1 - 2 each PO Q6HR PRN #48 tab 08/30/24 [Rx] Follow up Appointment(s)/Referral(s): Maximo Negrete MD [Medical Doctor] - 2 Weeks [facility] [Primary Care Provider] - 1-2 days Activity/Diet/Wound Care/Special Instructions: 1. Weight-bear as tolerated on your operative extremity unless instructed otherwise. Use a walker or other assistive device to ambulate. 2. Leave surgical dressing in place. If your dressing becomes saturated with blood, there is drainage, or the dressing becomes loose please contact the office. 3. It is okay to shower with your surgical dressing, but do not submerge in water (no hot tubs, bath's, swimming etc.) 4. Take your blood clot prevention medication as prescribed (aspirin, Eliquis, Xarelto, and Plavix are commonly prescribed medications for blood clot prevention) 5. While taking [place] or Percocet for pain take a stool softener (Ex: Colace) and drink lots of water. 6. Keep all follow-up appointments as scheduled. You will usually be seen in 1-2 weeks following surgery. 7. Please contact the office with any questions or concerns [phone] Discharge Disposition: HOME WITH HOME HEALTH SERVICES
== END 2024-08-30 16:28 | disposition home health service (06) | DRG 522 ==
LOC: EC 05:16 → 5NMEDONC 06:13 → 4SSUR 11:48
PROVIDERS: ADMIT Orthopaedic Surgery; ATTEND Orthopaedic Surgery
PROC: 0SRS0J9 Replacement of Left Hip Joint, Femoral Surface with Synthetic Substitute, Cemented, Open Approach (ICD-10-PCS; principal; 2024-08-26 10:15)
DX: S72.032A Displaced midcervical fracture of left femur, initial encounter for closed fracture (principal); D62 Acute posthemorrhagic anemia; I10 Essential (primary) hypertension; M25.052 Hemarthrosis, left hip; E87.1 Hypo-osmolality and hyponatremia; D72.829 Elevated white blood cell count, unspecified; F17.200 Nicotine dependence, unspecified, uncomplicated; I44.0 Atrioventricular block, first degree; I44.7 Left bundle-branch block, unspecified; R09.02 Hypoxemia; W00.0XXA Fall on same level due to ice and snow, initial encounter; Z79.899 Other long term (current) drug therapy; Z79.82 Long term (current) use of aspirin
CPT/HCPCS: 36415; 64999; 71045; 72170; 73501; 80048; 80053; 85025; 85610; 85730; 96361; 96365; 96375; 96376; 99285